=== PATIENT | female | born 1980 | race Caucasian/White ===

== ENCOUNTER 2019-02-07 19:34 | Emergency (ER) | payer OTHER, MEDICAID, SELFPAY ==
[2019-02-07 20:05] VITALS: BP 142/94; PULSE 80; RESP 18; TEMP 36.6; O2SAT 98
--- NOTE | 2019-02-07 20:40 | ED.SKABFB ---
HPI - Skin/Abscess/Foreign Bdy General Chief complaint: Skin/Abscess/Foreign Body Stated complaint: Rash Time Seen by Provider: 02/07/19 20:36 Source: patient Mode of arrival: Wheelchair Limitations: no limitations History of Present Illness HPI narrative: 38F non smoker with history of traumatic amputation of LLE (dog bite) presents with two children and itchy widespread rash the past few weeks to months. They have been living in various shelters and 1 of her children has been treated with permethrin for scabies. She has no fever chills nor any other complaints. She has had no runny nose, sore throat or cough. She complains largely of an itchy rash most notable on her hands and arms MD complaint: rash Tetanus up to date: no Location: generalized Severity: mild Quality: constant and pruritic Relieving factors: none Exacerbating factors: none Associated symptoms: itching Treatments prior to arrival: none Related Data Previous Rx's Medication Instructions Recorded permethrin 1 applictn TOP Q14D #60 gram 02/07/19 Review of Systems Constitutional Constitutional: Denies chills, Denies fatigue, Denies fever(s), Denies frequent falls, Denies lethargy and Denies weakness Eyes Eyes: Denies change in vision, Denies eye discharge, Denies irritation and Denies loss of vision ENT Ears, Nose, Mouth, and Throat: Denies change in voice, Denies dizziness, Denies neck pain, Denies sore throat and Denies throat swelling Cardiovascular Cardiovascular: Denies chest pain, Denies irregular heart rhythm, Denies lightheadedness, Denies palpitations, Denies dyspnea, Denies dyspnea on exertion and Denies orthopnea Respiratory Respiratory: Denies cough, Denies dyspnea, Denies dyspnea on exertion and Denies wheezing Gastrointestinal Gastrointestinal: Denies abdominal pain, Denies change in bowel habits, Denies diarrhea, Denies nausea and Denies vomiting Genitourinary Genitourinary: Denies hematuria, Denies flank pain, Denies urinary incontinence and Denies urinary urgency Musculoskeletal Musculoskeletal: Denies back pain, Denies muscle weakness, Denies neck pain, Denies numbness and Denies tingling Integumentary/Breasts Skin/Breast: Denies pruritus, Denies erythema, Reports rash and Denies wounds Neurologic Neurologic: Denies behavioral changes, Denies confusion, Denies dizziness, Denies frequent falls, Denies loss of vision, Denies numbness, Denies tingling and Denies weakness Psychiatric Psychiatric: Denies anxiety, Denies behavioral changes, Denies confusion, Denies depression, Denies homicidal ideation and Denies suicidal ideation Endocrine Endocrine: Denies fatigue, Denies flushing and Denies palpitations Hematologic/Lymphatic Hematologic/Lymphatic: Denies easy bruising Allergic/Immunologic Allergic/Immunologic: Denies urticaria, Denies throat swelling and Denies wheezing Patient History Social History Smoking Status: Never smoker Smoking Status: Never smoker Substance Use Type: does not use Exam Narrative Exam Narrative: GEN: AOx3 and in mild distress EYES: Pupils are equal, round, and reactive to light and accommodation. Extraoccular muscles are intact bilaterally. There is no subconjunctival hemorrhage or exudate. CHEST: Lungs are clear to auscultation bilaterally and free of wheezes, rales, or rhonchi. Heart rate is regular rhythm, there are no murmurs, clicks, rubs, or gallops. There is no chest wall tenderness. ABD: Abdomen is soft and nontender. There is no guarding or rebound. Bowel sounds are normal in all 4 quadrants. There is no mass or organomegaly. EXT: Full painless ROM of all extremities with no loss of sensation or strength. SKIN: Multiple minimally excoriated lesions particularly in the web spaces of her hands and on forearms consistent with scabies Initial Vital Signs Initial Vital Signs: Vital Signs Temperature 98 F 02/07/19 20:05 Pulse Rate 80 02/07/19 20:05 Respiratory Rate 18 02/07/19 20:05 Blood Pressure 142/94 H 02/07/19 20:05 Pulse Oximetry 98 02/07/19 20:05 Course Vital Signs Vital signs: Vital Signs - 8 hr 02/07/19 20:05 Temperature 98 F Pulse Rate 80 Respiratory Rate 18 Blood Pressure 142/94 H Pulse Oximetry 98 Discharge Plan Departure Patient Disposition: Home Clinical Impression: Scabies Discharge Date/Time: 02/07/19 21:12 Instructions: DI for Scabies Activity Restrictions/Additional Instructions: *You have been diagnosed with [acute pruritic rash, likely scabies] *What to do: *Take medications as directed *Follow up with your primary care provider in 2-3 days, call for an appointment. Let them know you were seen in the Emergency Department and that we ask that you be seen in follow up *Return to ER if you should have any new, worsening or concerning symptoms Prescriptions: New permethrin 5 % cream 1 applictn TOP Q14D Qty: 60 RF: 0
== END 2019-02-07 21:12 | disposition home or self-care (01) ==
PROVIDERS: Emergency Provider Emergency Medicine
DX: L29.9 Pruritus, unspecified (principal)
CPT/HCPCS: 99281

== ENCOUNTER 2019-06-30 18:58 | Emergency (ER) | payer OTHER, MEDICAID, SELFPAY ==
[2019-06-30 19:22] VITALS: PULSE 105; RESP 22; TEMP 36.9; O2SAT 95; BMI 48.4
== END 2019-06-30 20:40 | disposition left against medical advice (07) ==
PROVIDERS: Emergency Provider Emergency Medicine; PCP Family Medicine
DX: R06.02 Shortness of breath (principal); R05 Cough
CPT/HCPCS: 99281

== ENCOUNTER → 2019-07-01 14:34 | Outpatient (CLI) | payer OTHER, MEDICAID, SELFPAY ==
[2019-07-04 06:11] LABS: COVID19 Sendout Not Detected (Not Detected)
== END ==
PROVIDERS: PCP Family Medicine; Visit Provider Registered Nurse
DX: R06.02 Shortness of breath (principal)
CPT/HCPCS: 87635

== ENCOUNTER → 2019-07-22 14:39 | Outpatient (CLI) | payer OTHER, MEDICAID, SELFPAY ==
[2019-07-22 15:49] LABS: Add Manual Diff / Slide Review NO; Basophils Absolute Auto 100 /uL (0-100); Basophils Percent Auto 0.4 % (0-2); Eosinophils Absolute Auto 200 /uL (0-450); Eosinophils Percent Auto 1.3 % (2-4); Hematocrit 35.2 % (36-46); Hemoglobin 11.4 g/dL (12.0-16.0); Lymphocytes Absolute Auto 2900 /uL (1100-4500); Lymphocytes Percent Auto 23.3 % (25-40); Mean Corpuscular HGB Conc 32.4 % (30-36); Mean Corpuscular Hemoglobin 22.9 PG (26-34); Mean Corpuscular Volume 70.6 fL (80-100); Monocytes Absolute Auto 800 /uL (0-900); Monocytes Percent Auto 6.2 % (3-14); Neutrophils Absolute Auto 8400 /uL (1500-7000); Neutrophils Percent Auto 68.8 % (50-75); Platelet Count 550 X10^3/uL (150-400); Red Blood Cell Count 4.98 X10^6/uL (4.0-5.2); White Blood Cell Count 12.2 X10^3/uL (4.5-11.0)
[2019-07-22 16:42] LABS: Thyroid Stimulating Hormone 1.35 uIU/mL (0.47-4.68)
== END ==
PROVIDERS: PCP Family Medicine; Referring Provider Family Medicine; Visit Provider Family Medicine
DX: R53.83 Other fatigue (principal)
CPT/HCPCS: 36415; 84443; 85025

== ENCOUNTER → 2019-08-04 09:34 | Outpatient (CLI) | payer OTHER, MEDICAID, SELFPAY ==
[2019-08-04 11:11] LABS: Hematocrit 34.6 % (36-46); Hemoglobin 10.8 g/dL (12.0-16.0); Mean Corpuscular HGB Conc 31.2 % (30-36); Mean Corpuscular Hemoglobin 22.4 PG (26-34); Mean Corpuscular Volume 71.7 fL (80-100); Platelet Count 491 X10^3/uL (150-400); Red Blood Cell Count 4.83 X10^6/uL (4.0-5.2); Red Cell Distribution Width 17.8 % (11.6-14.8); White Blood Cell Count 12.6 X10^3/uL (4.5-11.0)
[2019-08-04 11:42] LABS: Neutrophils Absolute Manual 9702 /uL (3000-5900); RBC Morphology Normal Morphology; Total Cells Counted 100
== END ==
PROVIDERS: PCP Family Medicine; Referring Provider Family Medicine; Visit Provider Family Medicine
DX: K21.9 Gastro-esophageal reflux disease without esophagitis (principal)
CPT/HCPCS: 36415; 85025

== ENCOUNTER 2019-08-07 17:15 | Emergency (ER) | payer OTHER, MEDICAID, SELFPAY ==
[2019-08-07] VITALS (15 sets, daily range): BP systolic 150–193; BP diastolic 86–115; PULSE 101–119; RESP 20–32; TEMP 36.8–36.9; O2SAT 96–98; BMI 48.4
--- NOTE | 2019-08-07 17:25 | ED_ITS ---
HPI - SOB/Dyspnea <Clare Farrell PA-C - Last Filed: 08/07/19 22:35> General Chief Complaint: Shortness of Breath/Dyspnea Stated Complaint: dizzy,tired,out of breath easily Time Seen by Provider: 08/07/19 17:25 Source: patient Mode of arrival: Wheelchair Limitations: physical limitation History of Present Illness HPI Narrative: This is a 39-year-old woman current nonsmoker (quit 2 months ago) wheelchair dependent with a hx of total left leg amputation, GERD, CAD, recent low back pain, thrombocytosis, and leukocytosis who presents to the emergency department complaining of shortness of breath that began today as well just feeling very fatigued today, and some coughing last night; she has also low back pain for the past 2 weeks that is worse with movement and better with rest. She states that she also has noticed some swelling or like there is more fluid collected there? in her left thigh in the past week where her leg amputation is. She had an IUD placed last fall, she is not sure which kind. She says that she had it placed because she was having so much vaginal bleeding with her periods that it was like a hemorrhage. Since that time she has not had regular periods. She has only had some spotting. She notes that for 3 or 4 months now she has had a little bit of discharge that is whitish yellow and it is enough that she even wears a pad sometimes and she thinks that it smells a little bit bad, this has not worsened or changed recently. She notes that she had a mild headache for couple of days but she does not have 1 today. She denies any fever, chills, chest pain, pain with deep inspiration, abdominal pain, dysuria, chest pain, upper back or flank pain, or any other symptoms. Related Data Home Medications Medication Instructions Recorded Confirmed varenicline 1 mg tablet 1 mg PO BID 05/09/19 08/04/19 Previous Rx's Medication Instructions Recorded buspirone 10 mg tablet 10 mg PO BID #180 tab 05/09/19 lisinopril 20 mg tablet 20 mg PO BID #180 tab 05/09/19 omeprazole 20 mg capsule,delayed 20 mg PO DAILY #90 cap 05/09/19 release varenicline 0.5 mg (11)-1 mg (42) See Rx Instructions PO PER PKG DIR 05/09/19 tablets in a dose pack #53 each varenicline 1 mg tablet 1 mg PO BID #56 tab 05/09/19 venlafaxine 150 mg 150 mg PO BID #180 cap 05/09/19 capsule,extended release 24 hr crutches #1 ea 07/22/19 metoprolol tartrate 25 mg tablet 25 mg PO BEDTIME #30 tab 08/04/19 Allergies Allergy/AdvReac Type Severity Reaction Status Date / Time No Known Drug Allergies Allergy Verified 08/07/19 17:23 Review of Systems <Clare Farrell PA-C - Last Filed: 08/07/19 22:35> Review of Systems Narrative: GENERAL: Denies chills, fatigue, malaise, fever, sweats. HEENT: Denies sinus pain, ear pain, sore throat, difficulty swallowing, dizziness. RESPIRATORY: Positive for dyspnea, cough last night, negative for wheezing, hemoptysis, sputum. CARDIOVASCULAR: Denies chest pain, palpitations, orthopnea, positive for some edema in her left leg amputation she thinks this has changed in the last week. GASTROINTESTINAL: Denies nausea, vomiting, abdominal pain, diarrhea, constipation, melena. : Denies dysuria, frequency, incontinence, hematuria, urinary retention, positive for some whitish yellow discharge for the past 3 or 4 months that is ?not good smelling. MUSCULOSKELETAL: Positive for bilateral low back pain for the past few weeks, denies new weakness, joint pain, or bony pain SKIN: Denies rash, skin lesions, or other NEUROLOGIC: Denies weakness, positive for intermittent headache for the last few days--feels like her normal frequent headaches, negative for numbness, change in speech, confusion, seizures, incoordination. PSYCHIATRIC: No concerning psychosocial issues. 12 point review of systems is negative except for those stated above Patient History <Clare Farrell PA-C - Last Filed: 08/07/19 22:35> Medical History Below knee amputation (Acute) Chronic low back pain (Acute) Generalized anxiety disorder (Acute) GERD (gastroesophageal reflux disease) (Chronic) Leukocytosis (Acute) Loose left total knee arthroplasty (Acute) Sleep apnea (Acute) Thrombocytosis (Acute) Tobacco abuse disorder (Acute) Social History Smoking Status: Never smoker Smoking Status: Never smoker alcohol intake frequency: 0-2 drinks per day Substance Use Type: does not use Exam <Clare Farrell PA-C - Last Filed: 08/07/19 22:35> Narrative Exam Narrative: GENERAL: 39 year old morbidly obese left above the knee amputee patient appears stated age, sitting upright in bed, breathing quickly. Well-nourished, well-developed patient, in mild-moderate distress. HEAD: Atraumatic. Normocephalic. EYES: Pupils equal round and reactive. Extraocular motions intact. No scleral icterus. No injection or drainage. ENT: Nose without bleeding, purulent drainage. Throat without erythema, tonsillar hypertrophy or exudate. Airway patent. NECK: Trachea midline. Non tender CARDIOVASCULAR: Regular rate and rhythm without murmurs, gallops, or rubs. RESPIRATORY: Rapid respirations 26 Clear to auscultation. Breath sounds equal bilaterally. No wheezes, rales, or rhonchi. GASTROINTESTINAL: Abdomen soft, protruberant, non-tender, nondistended, No CVA tenderness. EXTREMITIES: the left AKA has no apreciable edema, and is without erythema or heat. No edema or joint tenderness noted on the right leg. BACK: Slight tenderness bilaterally at the sacroiliac joint. Otherwise Nontender without deformity or crepitance. No flank tenderness. NEURO: AOx3. SKIN: No rash or erythema of visible areas Initial Vital Signs Initial Vital Signs: Vital Signs Temperature 98.2 F 08/07/19 17:20 Pulse Rate 109 H 08/07/19 17:20 Respiratory Rate 27 H 08/07/19 17:20 Blood Pressure 187/102 H 08/07/19 17:20 Pulse Oximetry 97 08/07/19 17:20 <Robbin Evans DO - Last Filed: 08/07/19 22:46> Initial Vital Signs Initial Vital Signs: Vital Signs Temperature 98.2 F 08/07/19 17:20 Pulse Rate 109 H 08/07/19 17:20 Respiratory Rate 27 H 08/07/19 17:20 Blood Pressure 187/102 H 08/07/19 17:20 Pulse Oximetry 97 08/07/19 17:20 Course <Clare Farrell PA-C - Last Filed: 08/07/19 22:35> Orders Ordered: ED Orders 08/07/19 17:26 XR chest 2V Stat EKG-12 Lead Stat Measure peak expiratory flow ONCE RT Consult Eval and Treat Now 08/07/19 18:10 Complete Blood Count AUTO DIFF Stat Comprehensive Metabolic Panel Stat D Dimer Stat Lactate (Lactic Acid) Stat NT-proBNP (BNP-Adult 18+) Stat Partial Thromboplastin Time Stat Prothrombin Time INR Stat Troponin & CK Cardiac Panel Stat 08/07/19 19:40 Influenza A & B (PCR) Stat 08/07/19 19:52 Urine Microscopic Stat 08/07/19 20:53 CT angio chest PE protocol Stat Discontinued Medications Sodium Chloride (Normal Saline 0.9%) 1,000 mls @ 500 mls/hr IV BOLUS ONE Stop: 08/07/19 21:08 Last Infusion: 08/07/19 20:34 Dose: 0 mls/hr Documented by: Admin: 08/07/19 19:37 Dose: 500 mls/hr Documented by: [email or web address] Vital Signs Vital signs: Vital Signs - 8 hr 08/07/19 17:20 08/07/19 17:23 08/07/19 17:30 Temperature 98.2 F Pulse Rate 109 H 110 H 108 H Respiratory Rate 27 H 29 H 30 H Blood Pressure 187/102 H 193/107 H Pulse Oximetry 97 97 97 08/07/19 19:08 08/07/19 19:10 08/07/19 19:12 Temperature Pulse Rate 109 H 106 H 107 H Respiratory Rate 25 H 27 H 30 H Blood Pressure 167/100 H 166/95 H Pulse Oximetry 96 97 97 08/07/19 19:13 08/07/19 19:30 08/07/19 20:00 Temperature 98.5 F Pulse Rate 106 H 106 H Respiratory Rate 28 H 26 H Blood Pressure 166/95 H Pulse Oximetry 97 97 08/07/19 20:02 08/07/19 20:14 08/07/19 20:30 Temperature 98.3 F Pulse Rate 107 H 107 H 101 H Respiratory Rate 29 H 28 H 25 H Blood Pressure 150/86 H 150/89 H 169/115 H Pulse Oximetry 97 98 97 08/07/19 21:00 08/07/19 21:12 08/07/19 22:20 Temperature Pulse Rate 119 H 117 H 107 H Respiratory Rate 32 H 20 24 Blood Pressure 150/88 H Pulse Oximetry 97 97 98 <Robbin Evans DO - Last Filed: 08/07/19 22:46> Orders Ordered: ED Orders 08/07/19 17:26 XR chest 2V Stat EKG-12 Lead Stat Measure peak expiratory flow ONCE RT Consult Eval and Treat Now 08/07/19 18:10 Complete Blood Count AUTO DIFF Stat Comprehensive Metabolic Panel Stat D Dimer Stat Lactate (Lactic Acid) Stat NT-proBNP (BNP-Adult 18+) Stat Partial Thromboplastin Time Stat Prothrombin Time INR Stat Troponin & CK Cardiac Panel Stat 08/07/19 19:40 Influenza A & B (PCR) Stat 08/07/19 19:52 Urine Microscopic Stat 08/07/19 20:53 CT angio chest PE protocol Stat Discontinued Medications Sodium Chloride (Normal Saline 0.9%) 1,000 mls @ 500 mls/hr IV BOLUS ONE Stop: 08/07/19 21:08 Last Infusion: 08/07/19 20:34 Dose: 0 mls/hr Documented by: Admin: 08/07/19 19:37 Dose: 500 mls/hr Documented by: [email or web address] Vital Signs Vital signs: Vital Signs - 8 hr 08/07/19 17:20 08/07/19 17:23 08/07/19 17:30 Temperature 98.2 F Pulse Rate 109 H 110 H 108 H Respiratory Rate 27 H 29 H 30 H Blood Pressure 187/102 H 193/107 H Pulse Oximetry 97 97 97 08/07/19 19:08 08/07/19 19:10 08/07/19 19:12 Temperature Pulse Rate 109 H 106 H 107 H Respiratory Rate 25 H 27 H 30 H Blood Pressure 167/100 H 166/95 H Pulse Oximetry 96 97 97 08/07/19 19:13 08/07/19 19:30 08/07/19 20:00 Temperature 98.5 F Pulse Rate 106 H 106 H Respiratory Rate 28 H 26 H Blood Pressure 166/95 H Pulse Oximetry 97 97 08/07/19 20:02 08/07/19 20:14 08/07/19 20:30 Temperature 98.3 F Pulse Rate 107 H 107 H 101 H Respiratory Rate 29 H 28 H 25 H Blood Pressure 150/86 H 150/89 H 169/115 H Pulse Oximetry 97 98 97 08/07/19 21:00 08/07/19 21:12 08/07/19 22:20 Temperature Pulse Rate 119 H 117 H 107 H Respiratory Rate 32 H 20 24 Blood Pressure 150/88 H Pulse Oximetry 97 97 98 MDM - SOB/Dyspnea <Clare Farrell PA-C - Last Filed: 08/07/19 22:35> Lab Data Attestation: I reviewed the patient's lab results. Result diagrams: 08/07/19 18:10 08/07/19 18:10 Labs: Lab Results 08/07/19 08/07/19 08/07/19 Range/Units 18:10 18:10 18:10 WBC 17.9 H (4.5-11.0) X10^3/uL RBC 5.11 (4.0-5.2) X10^6/uL Hgb 11.8 L (12.0-16.0) g/dL Hct 36.6 (36-46) % MCV 71.5 L (80-100) fL MCH 23.1 L (26-34) PG MCHC 32.3 (30-36) % RDW 17.7 H (11.6-14.8) % Plt Count 525 H (150-400) X10^3/uL Neut % (Auto) 68.3 (50-75) % Lymph % (Auto) 22.4 L (25-40) % [place] % (Auto) 6.9 (3-14) % Eos % (Auto) 1.2 L (2-4) % Baso % (Auto) 1.2 (0-2) % Neut # (Auto) 03499 H (6017-5248) /uL Lymph # (Auto) 4000 (5353-9352) /uL [place] # (Auto) 1200 H (0-900) /uL Eos # (Auto) 200 (0-450) /uL Baso # (Auto) 200 H (0-100) /uL PT (10.1-12.7) SECONDS INR (0.9-1.3) APTT (26.4-36.2) SECONDS D-Dimer (<230) ng/mL Sodium 136 L (137-145) mmol/L Potassium 4.4 (3.4-5.1) mmol/L Chloride 101 (98-107) mmol/L Carbon Dioxide 25 (22-32) mmol/L BUN 10 (7-17) mg/dL Creatinine 0.38 L (0.52-1.04) mg/dL Estimated GFR > 60.0 (>60) mL/min BUN/Creatinine Ratio 26.3 H (6-22) Glucose 208 H (70-100) mg/dL Lactate 2.0 (0.7-2.1) mmol/L Calcium 9.5 (8.4-10.2) mg/dL Total Bilirubin 0.3 (0.2-1.3) mg/dL AST 23 (14-36) IU/L ALT 17 (<35) IU/L Alkaline Phosphatase 126 (38-126) U/L Total Creatine Kinase (30-135) U/L CK-MB (CK-2) CK-MB (CK-2) Rel Index Troponin I (0.01-0.034) ng/mL NT-Pro-B Natriuret Pep (<125) pg/mL Total Protein 7.5 (6.3-8.2) g/dL Albumin 4.2 (3.5-5.0) g/dL Globulin 3.3 (1.7-4.1) g/dL Albumin/Globulin Ratio 1.3 (1.0-2.8) Urine RBC (0-5/HPF) Urine WBC (0-5/HPF) Ur Squamous Epith Cells (0-5/HPF) Amorphous Sediment Urine Bacteria (None) Urine Mucus (Negative) Ur Culture Indicated? Influenza A (RT-PCR) (NEGATIVE) Influenza B (RT-PCR) (NEGATIVE) 08/07/19 08/07/19 08/07/19 Range/Units 18:10 18:10 18:10 WBC (4.5-11.0) X10^3/uL RBC (4.0-5.2) X10^6/uL Hgb (12.0-16.0) g/dL Hct (36-46) % MCV (80-100) fL MCH (26-34) PG MCHC (30-36) % RDW (11.6-14.8) % Plt Count (150-400) X10^3/uL Neut % (Auto) (50-75) % Lymph % (Auto) (25-40) % [place] % (Auto) (3-14) % Eos % (Auto) (2-4) % Baso % (Auto) (0-2) % Neut # (Auto) (7948-2420) /uL Lymph # (Auto) (0262-4340) /uL [place] # (Auto) (0-900) /uL Eos # (Auto) (0-450) /uL Baso # (Auto) (0-100) /uL PT 11.1 (10.1-12.7) SECONDS INR 1.0 (0.9-1.3) APTT 30 (26.4-36.2) SECONDS D-Dimer < 200 (<230) ng/mL Sodium (137-145) mmol/L Potassium (3.4-5.1) mmol/L Chloride (98-107) mmol/L Carbon Dioxide (22-32) mmol/L BUN (7-17) mg/dL Creatinine (0.52-1.04) mg/dL Estimated GFR (>60) mL/min BUN/Creatinine Ratio (6-22) Glucose (70-100) mg/dL Lactate (0.7-2.1) mmol/L Calcium (8.4-10.2) mg/dL Total Bilirubin (0.2-1.3) mg/dL AST (14-36) IU/L ALT (<35) IU/L Alkaline Phosphatase (38-126) U/L Total Creatine Kinase (30-135) U/L CK-MB (CK-2) CK-MB (CK-2) Rel Index Troponin I (0.01-0.034) ng/mL NT-Pro-B Natriuret Pep 24 (<125) pg/mL Total Protein (6.3-8.2) g/dL Albumin (3.5-5.0) g/dL Globulin (1.7-4.1) g/dL Albumin/Globulin Ratio (1.0-2.8) Urine RBC (0-5/HPF) Urine WBC (0-5/HPF) Ur Squamous Epith Cells (0-5/HPF) Amorphous Sediment Urine Bacteria (None) Urine Mucus (Negative) Ur Culture Indicated? Influenza A (RT-PCR) (NEGATIVE) Influenza B (RT-PCR) (NEGATIVE) 08/07/19 08/07/19 08/07/19 Range/Units 18:10 19:40 19:52 WBC (4.5-11.0) X10^3/uL RBC (4.0-5.2) X10^6/uL Hgb (12.0-16.0) g/dL Hct (36-46) % MCV (80-100) fL MCH (26-34) PG MCHC (30-36) % RDW (11.6-14.8) % Plt Count (150-400) X10^3/uL Neut % (Auto) (50-75) % Lymph % (Auto) (25-40) % [place] % (Auto) (3-14) % Eos % (Auto) (2-4) % Baso % (Auto) (0-2) % Neut # (Auto) (9550-8027) /uL Lymph # (Auto) (1726-4680) /uL [place] # (Auto) (0-900) /uL Eos # (Auto) (0-450) /uL Baso # (Auto) (0-100) /uL PT (10.1-12.7) SECONDS INR (0.9-1.3) APTT (26.4-36.2) SECONDS D-Dimer (<230) ng/mL Sodium (137-145) mmol/L Potassium (3.4-5.1) mmol/L Chloride (98-107) mmol/L Carbon Dioxide (22-32) mmol/L BUN (7-17) mg/dL Creatinine (0.52-1.04) mg/dL Estimated GFR (>60) mL/min BUN/Creatinine Ratio (6-22) Glucose (70-100) mg/dL Lactate (0.7-2.1) mmol/L Calcium (8.4-10.2) mg/dL Total Bilirubin (0.2-1.3) mg/dL AST (14-36) IU/L ALT (<35) IU/L Alkaline Phosphatase (38-126) U/L Total Creatine Kinase 42 (30-135) U/L CK-MB (CK-2) TNP CK-MB (CK-2) Rel Index TNP Troponin I < 0.012 (0.01-0.034) ng/mL NT-Pro-B Natriuret Pep (<125) pg/mL Total Protein (6.3-8.2) g/dL Albumin (3.5-5.0) g/dL Globulin (1.7-4.1) g/dL Albumin/Globulin Ratio (1.0-2.8) Urine RBC 0-1/hpf (0-5/HPF) Urine WBC 1-5/hpf (0-5/HPF) Ur Squamous Epith Cells 5-10 /hpf H (0-5/HPF) Amorphous Sediment 1+ Urine Bacteria Few (2-10) H (None) Urine Mucus 1+ H (Negative) Ur Culture Indicated? Cult not indicated Influenza A (RT-PCR) Flu a negative (NEGATIVE) Influenza B (RT-PCR) Flu b negative (NEGATIVE) Imaging Data Chest x-ray: Attestation: I personally reviewed and interpreted this imaging study as follows: Radiologist's Impression: [address] [address] XRay Report Signed Patient: Zaria Maldonado BMR#: [id number] : 1980Acct:[id number] Age/Sex: 39 / FDate of Service: 08/07/19 Loc: ED Accession Number: [id number] Procedure: XR chest 2V Ordering Provider: Clare Farrell P.A-C PROCEDURE: XR CHEST 2V INDICATIONS: shortness of breath TECHNIQUE: 2 views of the chest were acquired. COMPARISON: None. FINDINGS: Surgical changes and devices: None. Lungs and pleura: Lungs are clear. No pleural effusions or pneumothorax. Mediastinum: Mediastinal contours are normal. Heart size is normal. Bones and chest wall: No suspicious bony abnormalities. Soft tissues appear unremarkable. IMPRESSION: Low lung volumes with scattered subsegmental atelectasis/scarring. Dictated by: Ari Ace M.D. on 08/07/2019 at 18:18 Approved by: Ari Ace M.D. on 08/07/2019 at 18:21 CT scan - chest: Attestation: I personally reviewed and interpreted this imaging study as follows: Radiologist's Impression: [address] [address] [address] Scan Report Signed Patient: Zaria Maldonado BMR#: [id number] : 1980Acct:[id number] Age/Sex: 39 / FDate of Service: 08/07/19 Loc: ED Accession Number: [id number] Procedure: CT angio chest PE protocol Ordering Provider: Clare Farrell P.A-C PROCEDURE: CT ANGIO CHEST PE PROTOCOL INDICATIONS: acute dyspnea/tachycardia TECHNIQUE: After the administration of intravenous contrast, 2 mm thick sections acquired from the pulmonary apices to the posterior costophrenic angles. 3-dimensional maximum i ntensity projection (MIP) coronal and sagittal reformats were then acquired through the thorax. For radiation dose reduction, the following was used: automated exposure control, adjustment of mA and/or kV according to patient size. COMPARISON: None. FINDINGS: Image quality: Suboptimal due to body habitus. Pulmonary arteries: Pulmonary arteries are normal in size, and demonstrate no intraluminal filling defects to suggest central pulmonary embolism. Lungs and pleura: Lungs are clear. Mild scattered atelectasis. No pleural effusions or pneumothorax. Central and peripheral airways are patent. Mediastinum: Heart size is normal, without pericardial effusion. No mediastinal or hilar adenopathy. Thoracic aorta is normal in caliber and enhancement. Esophagus is normal in caliber, and there is a moderate hiatal hernia. Bones and chest wall: No suspicious bony lesions. Ribs and thoracic spine appear intact throughout. Thyroid gland negative. No axillary or supraclavicular adenopathy. Abdomen: Visualized upper abdominal solid organs appear normal in the early arterial phase of enhancement. IMPRESSION: Suboptimal evaluation due to body habitus however no gross pulmonary embolism identified No acute consolidation Moderate hiatal hernia Dictated by: Ari Ace M.D. on 08/07/2019 at 21:30 Approved by: Ari Ace M.D. on 08/07/2019 at 21:32 ECG Data Attestation: I personally reviewed and interpreted this ECG as follows: (sinus tachycardia,rate 107, CT 142, QRS 88, QT 332 P axis 19 R axis 11 T axis 31) MDM Narrative Medical decision making narrative: This is a 39-year-old nonsmoker morbidly obese woman with a left above the knee amputation and a history of low back pain, leukocytosis, thrombocytosis, CRIS and (suspected) sleep apnea who presents to the emergency department complaining of shortness of breath that began gradually this morning, she also had some coughing last night, and has felt very fatigued today. Differential diagnoses considered include sequela of sleep apnea, COVID-19, p ericarditis, pericardial effusion, pleural effusion, pulmonary embolism, pneumonia, sepsis, influenza, anemia, VT, aortic dissection After an extensive laboratory workup the patient continued to have unexplained abnormal vitals including elevated heart rate and respirations. Blood pressures were equal bilaterally. Cardiac labs within normal limits, negative D-dimer, negative urine, EKG w/mild tachycardia otherwise unremarkable, labs unremarkable with exception of elevated white count to 17,000 and elevated platelets to 525, she has a known history of leukocytosis and thrombocytosis; no clear etiology for her new-onset shortness of breath. CT scan PE protocol is obtained both to reaffirm negative PE, and to further assess the chest for causes of shortness of breath. This was also unremarkable and the patient felt significantly better towards the end of her stay and after receiving a 500 cc bolus of normal saline, she was discharged home with emergency return precautions, very close PCP follow-up, and all questions were answered. Patient was discussed with ED attending and labs and imaging /orders including plan for discharge were discussed and reviewed together. <Robbin Evans, DO - Last Filed: 08/07/19 22:46> Lab Data Labs: Lab Results 08/07/19 08/07/19 08/07/19 Range/Units 18:10 18:10 18:10 WBC 17.9 H (4.5-11.0) X10^3/uL RBC 5.11 (4.0-5.2) X10^6/uL Hgb 11.8 L (12.0-16.0) g/dL Hct 36.6 (36-46) % MCV 71.5 L (80-100) fL MCH 23.1 L (26-34) PG MCHC 32.3 (30-36) % RDW 17.7 H (11.6-14.8) % Plt Count 525 H (150-400) X10^3/uL Neut % (Auto) 68.3 (50-75) % Lymph % (Auto) 22.4 L (25-40) % [place] % (Auto) 6.9 (3-14) % Eos % (Auto) 1.2 L (2-4) % Baso % (Auto) 1.2 (0-2) % Neut # (Auto) 93205 H (9047-8418) /uL Lymph # (Auto) 4000 (9070-2728) /uL [place] # (Auto) 1200 H (0-900) /uL Eos # (Auto) 200 (0-450) /uL Baso # (Auto) 200 H (0-100) /uL PT (10.1-12.7) SECONDS INR (0.9-1.3) APTT (26.4-36.2) SECONDS D-Dimer (<230) ng/mL Sodium 136 L (137-145) mmol/L Potassium 4.4 (3.4-5.1) mmol/L Chloride 101 (98-107) mmol/L Carbon Dioxide 25 (22-32) mmol/L BUN 10 (7-17) mg/dL Creatinine 0.38 L (0.52-1.04) mg/dL Estimated GFR > 60.0 (>60) mL/min BUN/Creatinine Ratio 26.3 H (6-22) Glucose 208 H (70-100) mg/dL Lactate 2.0 (0.7-2.1) mmol/L Calcium 9.5 (8.4-10.2) mg/dL Total Bilirubin 0.3 (0.2-1.3) mg/dL AST 23 (14-36) IU/L ALT 17 (<35) IU/L Alkaline Phosphatase 126 (38-126) U/L Total Creatine Kinase (30-135) U/L CK-MB (CK-2) CK-MB (CK-2) Rel Index Troponin I (0.01-0.034) ng/mL NT-Pro-B Natriuret Pep (<125) pg/mL Total Protein 7.5 (6.3-8.2) g/dL Albumin 4.2 (3.5-5.0) g/dL Globulin 3.3 (1.7-4.1) g/dL Albumin/Globulin Ratio 1.3 (1.0-2.8) Urine RBC (0-5/HPF) Urine WBC (0-5/HPF) Ur Squamous Epith Cells (0-5/HPF) Amorphous Sediment Urine Bacteria (None) Urine Mucus (Negative) Ur Culture Indicated? Influenza A (RT-PCR) (NEGATIVE) Influenza B (RT-PCR) (NEGATIVE) 07/02/20 07/02/20 07/02/20 Range/Units 18:10 18:10 18:10 WBC (4.5-11.0) X10^3/uL RBC (4.0-5.2) X10^6/uL Hgb (12.0-16.0) g/dL Hct (36-46) % MCV (80-100) fL MCH (26-34) PG MCHC (30-36) % RDW (11.6-14.8) % Plt Count (150-400) X10^3/uL Neut % (Auto) (50-75) % Lymph % (Auto) (25-40) % [place] % (Auto) (3-14) % Eos % (Auto) (2-4) % Baso % (Auto) (0-2) % Neut # (Auto) (6937-9099) /uL Lymph # (Auto) ([address]-5120) /uL [place] # (Auto) (0-900) /uL Eos # (Auto) (0-450) /uL Baso # (Auto) (0-100) /uL PT 11.1 (10.1-12.7) SECONDS INR 1.0 (0.9-1.3) APTT 30 (26.4-36.2) SECONDS D-Dimer < 200 (<230) ng/mL Sodium (137-145) mmol/L Potassium (3.4-5.1) mmol/L Chloride (98-107) mmol/L Carbon Dioxide (22-32) mmol/L BUN (7-17) mg/dL Creatinine (0.52-1.04) mg/dL Estimated GFR (>60) mL/min BUN/Creatinine Ratio (6-22) Glucose (70-100) mg/dL Lactate (0.7-2.1) mmol/L Calcium (8.4-10.2) mg/dL Total Bilirubin (0.2-1.3) mg/dL AST (14-36) IU/L ALT (<35) IU/L Alkaline Phosphatase (38-126) U/L Total Creatine Kinase (30-135) U/L CK-MB (CK-2) CK-MB (CK-2) Rel Index Troponin I (0.01-0.034) ng/mL NT-Pro-B Natriuret Pep 24 (<125) pg/mL Total Protein (6.3-8.2) g/dL Albumin (3.5-5.0) g/dL Globulin (1.7-4.1) g/dL Albumin/Globulin Ratio (1.0-2.8) Urine RBC (0-5/HPF) Urine WBC (0-5/HPF) Ur Squamous Epith Cells (0-5/HPF) Amorphous Sediment Urine Bacteria (None) Urine Mucus (Negative) Ur Culture Indicated? Influenza A (RT-PCR) (NEGATIVE) Influenza B (RT-PCR) (NEGATIVE) 08/07/19 08/07/19 08/07/19 Range/Units 18:10 19:40 19:52 WBC (4.5-11.0) X10^3/uL RBC (4.0-5.2) X10^6/uL Hgb (12.0-16.0) g/dL Hct (36-46) % MCV (80-100) fL MCH (26-34) PG MCHC (30-36) % RDW (11.6-14.8) % Plt Count (150-400) X10^3/uL Neut % (Auto) (50-75) % Lymph % (Auto) (25-40) % [place] % (Auto) (3-14) % Eos % (Auto) (2-4) % Baso % (Auto) (0-2) % Neut # (Auto) (0889-2889) /uL Lymph # (Auto) (3243-3847) /uL [place] # (Auto) (0-900) /uL Eos # (Auto) (0-450) /uL Baso # (Auto) (0-100) /uL PT (10.1-12.7) SECONDS INR (0.9-1.3) APTT (26.4-36.2) SECONDS D-Dimer (<230) ng/mL Sodium (137-145) mmol/L Potassium (3.4-5.1) mmol/L Chloride (98-107) mmol/L Carbon Dioxide (22-32) mmol/L BUN (7-17) mg/dL Creatinine (0.52-1.04) mg/dL Estimated GFR (>60) mL/min BUN/Creatinine Ratio (6-22) Glucose (70-100) mg/dL Lactate (0.7-2.1) mmol/L Calcium (8.4-10.2) mg/dL Total Bilirubin (0.2-1.3) mg/dL AST (14-36) IU/L ALT (<35) IU/L Alkaline Phosphatase (38-126) U/L Total Creatine Kinase 42 (30-135) U/L CK-MB (CK-2) TNP CK-MB (CK-2) Rel Index TNP Troponin I < 0.012 (0.01-0.034) ng/mL NT-Pro-B Natriuret Pep (<125) pg/mL Total Protein (6.3-8.2) g/dL Albumin (3.5-5.0) g/dL Globulin (1.7-4.1) g/dL Albumin/Globulin Ratio (1.0-2.8) Urine RBC 0-1/hpf (0-5/HPF) Urine WBC 1-5/hpf (0-5/HPF) Ur Squamous Epith Cells 5-10 /hpf H (0-5/HPF) Amorphous Sediment 1+ Urine Bacteria Few (2-10) H (None) Urine Mucus 1+ H (Negative) Ur Culture Indicated? Cult not indicated Influenza A (RT-PCR) Flu a negative (NEGATIVE) Influenza B (RT-PCR) Flu b negative (NEGATIVE) Discharge Plan Departure Patient Disposition: Home Clinical Impression: Shortness of breath, Cough Low back pain Qualifiers: Chronicity: chronic Back pain laterality: bilateral Sciatica presence: unspecified whether sciatica present Qualified Code(s): M54.5 - Low back pain Discharge Date/Time: 08/07/19 22:20 Instructions: DI for Shortness of Breath Activity Restrictions/Additional Instructions: Thank you for letting us be part of your care today in the emergency department. After an extensive workup, there is no evidence of an emergent or life threatening illness at this time, but follow up with your doctor in 1-2 days is recommended nonetheless to continue to rule out serious underlying causes of your symptoms. Please call the office for an appointment. Please return to the Emergency Department for any worsening or persistent symptoms. Please take medications as directed. It is important that you follow-up with your primary care physician regarding your breathing difficulty, and your plan for a sleep study for sleep apnea. It is also important that if you have any worsening symptoms or new symptoms that you seek medical care immediately. I do not have a clear answer for why you have been having increased shortness of breath today, however I am glad that you were feeling better upon your departure from the emergency department and I feel comfortable that we have ruled out any major life threats with the labs and imaging studies we have performed today but please pay close attention to her symptoms and do follow-up as soon as possible tomorrow or early next week with your primary care physician. Prescriptions: No Action varenicline 1 mg tablet 1 mg PO BID RF: 0 buspirone 10 mg tablet 10 mg PO BID Qty: 180 RF: 1 omeprazole 20 mg capsule,delayed release(DR/EC) 20 mg PO DAILY Qty: 90 RF: 1 venlafaxine 150 mg capsule,extended release 24hr 150 mg PO BID Qty: 180 RF: 1 Chantix Starting Month Box 0.5 mg (11)- 1 mg (42) tablets,dose pack See Rx Instructions PO PER PKG DIR Qty: 53 RF: 0 Chantix Continuing Month Box 1 mg tablet 1 mg PO BID Qty: 56 RF: 1 lisinopril 20 mg tablet 20 mg PO BID Qty: 180 RF: 3 (DME) crutches Qty: 1 RF: 0 metoprolol tartrate 25 mg tablet 25 mg PO BEDTIME Qty: 30 RF: 1 Referrals: Raffaele Diallo DO [Primary Care Provider] - <Robbin Evans DO - Last Filed: 08/07/19 22:46> [facility]: Dr Evans Co-Sign Statement: I was available for consultation during this patient's emergency department visit. This chart is signed by myself for administrative purposes only. I did not have direct contact with this patient during this visit. They were seen indep endently by the APC.
[2019-08-07 18:22] LABS: Add Manual Diff / Slide Review NO; Basophils Absolute Auto 200 /uL (0-100); Basophils Percent Auto 1.2 % (0-2); Eosinophils Absolute Auto 200 /uL (0-450); Eosinophils Percent Auto 1.2 % (2-4); Hematocrit 36.6 % (36-46); Hemoglobin 11.8 g/dL (12.0-16.0); Lymphocytes Absolute Auto 4000 /uL (1100-4500); Lymphocytes Percent Auto 22.4 % (25-40); Mean Corpuscular HGB Conc 32.3 % (30-36); Mean Corpuscular Hemoglobin 23.1 PG (26-34); Mean Corpuscular Volume 71.5 fL (80-100); Monocytes Absolute Auto 1200 /uL (0-900); Monocytes Percent Auto 6.9 % (3-14); Neutrophils Absolute Auto 12200 /uL (1500-7000); Neutrophils Percent Auto 68.3 % (50-75); Platelet Count 525 X10^3/uL (150-400); Red Blood Cell Count 5.11 X10^6/uL (4.0-5.2); Red Cell Distribution Width 17.7 % (11.6-14.8); White Blood Cell Count 17.9 X10^3/uL (4.5-11.0)
[2019-08-07 18:30] LABS: Prothrombin Time 11.1 SECONDS (10.1-12.7)
[2019-08-07 18:33] LABS: PTT Partial Thromboplastin Tim 30 SECONDS (26.4-36.2)
[2019-08-07 18:36] LABS: Alanine Aminotransferase 17 IU/L (<35); Albumin 4.2 g/dL (3.5-5.0); Albumin Globulin Ratio 1.3 (1.0-2.8); Alkaline Phosphatase 126 U/L (38-126); Aspartate Aminotransferase 23 IU/L (14-36); BUN Creatinine Ratio 26.3 (6-22); Bilirubin Total 0.3 mg/dL (0.2-1.3); Blood Urea Nitrogen 10 mg/dL (7-17); Calcium 9.5 mg/dL (8.4-10.2); Carbon Dioxide 25 mmol/L (22-32); Chloride 101 mmol/L (98-107); Creatine Kinase 42 U/L (30-135); D Dimer < 200 ng/mL (<230); Estimated Glomerular Filt Rate > 60.0 mL/min (>60); Globulin 3.3 g/dL (1.7-4.1); Glucose 208 mg/dL (70-100); HEMOLYSIS 18 (0-50); Potassium 4.4 mmol/L (3.4-5.1); Sodium 136 mmol/L (137-145); Total Protein 7.5 g/dL (6.3-8.2)
[2019-08-07 18:44] LABS: NT-proBNP (BNP-Adult 18+) 24 pg/mL (<125)
[2019-08-07 18:47] LABS: Troponin I < 0.012 ng/mL (0.01-0.034)
[2019-08-07] MEDS: SODIUM CHLORIDE 0.9% 1,000 ML 500 ML IV (19:37)
[2019-08-07 20:10] LABS: Amorphous Sediment Urine 1+; Bacteria Urine Few (2-10); Mucus Urine 1+ (Negative); RBC Urine 0-1/HPF (0-5/HPF); Squamous Epithelial Cell Urine 5-10 /HPF (0-5/HPF); WBC Urine 1-5/HPF (0-5/HPF)
[2019-08-07 20:11] LABS: Culture Indicated Urine Cult Not Indicated
--- NOTE | 2019-08-07 20:15 | PC.NURSE ---
Pt went to bathroom via wheelchair. Pt complained of being really hot and sweaty. After pt came out of bathroom pt seemed very short of breath. This [employer] accompanied the pt back to her room and got another set of vitals as well as gave her a cool washrag
[2019-08-07 20:38] LABS: Influenza A - CEPHEID Flu A NEGATIVE (NEGATIVE); Influenza B - CEPHEID Flu B NEGATIVE (NEGATIVE)
--- NOTE | 2019-08-07 20:53 | DI.CT.S_ITS ---
PROCEDURE: CT ANGIO CHEST PE PROTOCOL INDICATIONS: acute dyspnea/tachycardia TECHNIQUE: After the administration of intravenous contrast, 2 mm thick sections acquired from the pulmonary apices to the posterior costophrenic angles. 3-dimensional maximum intensity projection (MIP) coronal and sagittal reformats were then acquired through the thorax. For radiation dose reduction, the following was used: automated exposure control, adjustment of mA and/or kV according to patient size. COMPARISON: None. FINDINGS: Image quality: Suboptimal due to body habitus. Pulmonary arteries: Pulmonary arteries are normal in size, and demonstrate no intraluminal filling defects to suggest central pulmonary embolism. Lungs and pleura: Lungs are clear. Mild scattered atelectasis. No pleural effusions or pneumothorax. Central and peripheral airways are patent. Mediastinum: Heart size is normal, without pericardial effusion. No mediastinal or hilar adenopathy. Thoracic aorta is normal in caliber and enhancement. Esophagus is normal in caliber, and there is a moderate hiatal hernia. Bones and chest wall: No suspicious bony lesions. Ribs and thoracic spine appear intact throughout. Thyroid gland negative. No axillary or supraclavicular adenopathy. Abdomen: Visualized upper abdominal solid organs appear normal in the early arterial phase of enhancement. IMPRESSION: Suboptimal evaluation due to body habitus however no gross pulmonary embolism identified No acute consolidation Moderate hiatal hernia Dictated by: Ari Ace M.D. on 08/07/2019 at 21:30 Approved by: Ari Ace M.D. on 08/07/2019 at 21:32
--- NOTE | 2019-08-07 21:02 | PC.NURSE ---
PT states SOB today with increasing fatigue, non productive cough last night and low back pain for past two weeks. 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 Pt denies CP. Denies fevers or loose stool. Related Data
[2019-08-10 04:07] LABS: COVID19 Sendout Not Detected (Not Detected)
== END 2019-08-07 22:20 | disposition home or self-care (01) ==
PROVIDERS: Emergency Provider Student in an Organized Health Care Education/Training Program; PCP Family Medicine
DX: R06.02 Shortness of breath (principal); R05 Cough; M54.5 Low back pain; R00.0 Tachycardia, unspecified; E66.01 Morbid (severe) obesity due to excess calories; Z97.5 Presence of (intrauterine) contraceptive device
CPT/HCPCS: 36415; 71046; 71275; 80053; 81015; 82550; 83605; 83880; 84484; 85025; 85379; 85610; 85730; 87502; 87635; 93005; 96360; 99284; Q9967

== ENCOUNTER 2019-08-17 16:11 | Emergency (ER) | payer OTHER, MEDICAID, SELFPAY ==
[2019-08-17] VITALS (7 sets, daily range): BP systolic 174–181; BP diastolic 96–99; PULSE 97–104; RESP 22–29; TEMP 37; O2SAT 93–96; BMI 48.4
--- NOTE | 2019-08-17 16:15 | PC.NURSE ---
Triage note: Pt C/O known COVID exposure. No room available at this time. Had pt wait outside for room to be cleared. Room 8 cleared and pt brought in. Explained negative pressure rooms and contamination.
--- NOTE | 2019-08-17 16:56 | DI.RAD.S_ITS ---
PROCEDURE: XR CHEST 1V INDICATIONS: short of breath TECHNIQUE: One view of the chest was acquired. COMPARISON: [facility], CR, XR CHEST 2V, 08/07/2019, 17:35. FINDINGS: Surgical changes and devices: None. Lungs and pleura: Lungs are clear. No pleural effusions or pneumothorax. Mild appearance of increased pulmonary vascularity. Mediastinum: Mediastinal contours appear normal. Heart size is enlarged. Bones and chest wall: No suspicious bony lesions. Overlying soft tissues appear unremarkable. IMPRESSION: Mild increased vascularity suggestive of edema. Dictated by: Camilla Morris M.D. on 08/17/2019 at 17:50 Approved by: Camilla Morris M.D. on 08/17/2019 at 17:51
[2019-08-17] MEDS: ALBUTEROL HFA 60 PUFF/8 GM INH INH (17:10)
[2019-08-17 17:15] LABS: Add Manual Diff / Slide Review NO; Basophils Absolute Auto 100 /uL (0-100); Eosinophils Absolute Auto 100 /uL (0-450); Eosinophils Percent Auto 1.5 % (2-4); Hemoglobin 10.9 g/dL (12.0-16.0); Lymphocytes Absolute Auto 1400 /uL (1100-4500); Mean Corpuscular HGB Conc 31.2 % (30-36); Mean Corpuscular Hemoglobin 22.4 PG (26-34); Mean Corpuscular Volume 71.8 fL (80-100); Monocytes Absolute Auto 1000 /uL (0-900); Monocytes Percent Auto 14.2 % (3-14); Neutrophils Absolute Auto 4300 /uL (1500-7000); Neutrophils Percent Auto 63.3 % (50-75); Platelet Count 431 X10^3/uL (150-400); Red Blood Cell Count 4.88 X10^6/uL (4.0-5.2); Red Cell Distribution Width 17.7 % (11.6-14.8); White Blood Cell Count 6.8 X10^3/uL (4.5-11.0)
[2019-08-17] MEDS: SODIUM CHLORIDE 0.9% 1,000 ML 125 ML IV (17:19)
--- NOTE | 2019-08-17 17:20 | ED_ITS ---
HPI - SOB/Dyspnea <DO Mayra Esparza Last Filed: 08/18/19 07:48> General Chief Complaint: Shortness of Breath/Dyspnea Stated Complaint: Difficulty Breathing/ Poss COVID Time Seen by Provider: 08/17/19 16:31 Source: patient Mode of arrival: Wheelchair Limitations: no limitations History of Present Illness HPI Narrative: 39-year-old Obese woman with history of coronary artery disease thrombocytosis and leukocytosis presenting after exposure to COVID-19 with shortness of breath. She says she and her girlfriend traveled by car to [place] her friend started having symptoms she tested positive in [place]. They drove back and she started having some body aches fevers chills cough and shortness of breath for the last 3-4 days. Today she says it is progressively worse. She has severe headache denies nausea or vomiting no abdominal pain. MD Complaint: shortness of breath and cough Onset (ago): day(s) Context: recent illness and recent travel Severity: moderate Consistency/Duration: constant Relieving factors: nothing Exacerbating factors: nothing Related Data Home Medications Medication Instructions Recorded Confirmed varenicline 1 mg tablet 1 mg PO BID 05/09/19 08/04/19 Previous Rx's Medication Instructions Recorded buspirone 10 mg tablet 10 mg PO BID #180 tab 05/09/19 lisinopril 20 mg tablet 20 mg PO BID #180 tab 05/09/19 omeprazole 20 mg capsule,delayed 20 mg PO DAILY #90 cap 05/09/19 release varenicline 0.5 mg (11)-1 mg (42) See Rx Instructions PO PER PKG DIR 05/09/19 tablets in a dose pack #53 each varenicline 1 mg tablet 1 mg PO BID #56 tab 05/09/19 venlafaxine 150 mg 150 mg PO BID #180 cap 05/09/19 capsule,extended release 24 hr crutches #1 ea 07/22/19 metoprolol tartrate 25 mg tablet 25 mg PO BEDTIME #30 tab 08/04/19 Allergies Allergy/AdvReac Type Severity Reaction Status Date / Time No Known Drug Allergies Allergy Verified 08/07/19 17:23 Review of Systems <DO Mayra Esparza Last Filed: 08/18/19 07:48> Review of Systems Narrative: GENERAL: Denies chills, fatigue, malaise, fever, sweats, travel HEENT: Denies sinus pain, ear pain, sore throat, difficulty swallowing, neck pain RESPIRATORY: See HPI CARDIOVASCULAR: Denies chest pain, palpitations, orthopnea, edema GASTROINTESTINAL: Denies nausea, vomiting, abdominal pain, diarrhea, constipation, melena. : Denies dysuria, frequency, incontinence, hematuria, urinary retention, flank pain. MUSCULOSKELETAL: Denies weakness, joint pain, or bony pain SKIN: No rash, no erythema, no pruritus NEUROLOGIC: Denies weakness, dizziness, headache, numbness, change in speech, confusion PSYCHIATRIC: No concerning psychosocial issues. 12 point review of systems is negative except for those stated above and HPI Patient History <Malka Pearce DO - Last Filed: 08/18/19 07:48> Medical History Below knee amputation (Acute) Chronic low back pain (Acute) Generalized anxiety disorder (Acute) GERD (gastroesophageal reflux disease) (Chronic) Leukocytosis (Acute) Loose left total knee arthroplasty (Acute) Sleep apnea (Acute) Thrombocytosis (Acute) Tobacco abuse disorder (Acute) Social History Smoking Status: Never smoker Smoking Status: Never smoker alcohol intake frequency: 0-2 drinks per day Substance Use Type: does not use Exam <Malka Pearce DO - Last Filed: 08/18/19 07:48> Initial Vital Signs Initial Vital Signs: Vital Signs Temperature 98.6 F 08/17/19 16:39 Pulse Rate 98 H 08/17/19 16:39 Respiratory Rate 27 H 08/17/19 16:39 Blood Pressure 181/99 H 08/17/19 16:39 Pulse Oximetry 96 08/17/19 16:39 GENERAL: Alert obese female in mild distress HEENT: Head atraumatic,EOMI, pupils reactive, face symmetric, [moist] mucous membranes CARDIOVASCULAR: Regular rate and rhythm without murmurs, rubs or gallops. RESPIRATORY: Breath sounds equal bilaterally, no wheezes rales or rhonchi. Speaks in full sentences ABDOMEN: Soft, nontender. Normoactive bowel sounds all 4 quadrants. No guarding or rebound. EXTREMITIES: Normal range of motion, no clubbing or edema. Neurovascularly intact. Left leg below-knee amputation NEUROLOGICAL: Alert and oriented x4. SKIN: Warm, dry, no laceration, no petechiae, no rashes or lesions. <Robbin Evans DO - Last Filed: 08/17/19 23:47> Initial Vital Signs Initial Vital Signs: Vital Signs Temperature 98.6 F 08/17/19 16:39 Pulse Rate 98 H 08/17/19 16:39 Respiratory Rate 27 H 08/17/19 16:39 Blood Pressure 181/99 H 08/17/19 16:39 Pulse Oximetry 96 08/17/19 16:39 Course <Malka Pearce DO - Last Filed: 08/18/19 07:48> Orders Ordered: Discontinued Medications Albuterol (Ventolin Hfa) 2 puff INH NOW ONE Stop: 08/17/19 16:56 Last Admin: 08/17/19 17:10 Dose: 2 puff Documented by: LINETTE Sodium Chloride (Normal Saline 0.9%) 1,000 mls @ 125 mls/hr IV CONT ARIADNA Last Infusion: 08/17/19 20:33 Dose: 0 mls/hr Documented by: Admin: 08/17/19 17:19 Dose: 125 mls/hr Documented by: VICKY Vital Signs Vital signs: Vital Signs - 8 hr 08/17/19 16:39 08/17/19 17:10 08/17/19 18:00 Temperature 98.6 F Pulse Rate 98 H 98 H 103 H Respiratory Rate 27 H 24 24 Blood Pressure 181/99 H Pulse Oximetry 96 94 94 08/17/19 18:30 08/17/19 19:09 08/17/19 19:30 Temperature Pulse Rate 104 H 99 H 98 H Respiratory Rate 23 26 H 29 H Blood Pressure 174/96 H Pulse Oximetry 95 93 94 08/17/19 20:00 Temperature Pulse Rate 97 H Respiratory Rate 22 Blood Pressure Pulse Oximetry 93 <DO Mayra Stewart Last Filed: 08/17/19 23:47> Orders Ordered: Discontinued Medications Albuterol (Ventolin Hfa) 2 puff INH NOW ONE Stop: 08/17/19 16:56 Last Admin: 08/17/19 17:10 Dose: 2 puff Documented by: LINETTE Sodium Chloride (Normal Saline 0.9%) 1,000 mls @ 125 mls/hr IV CONT ARIADNA Last Infusion: 08/17/19 20:33 Dose: 0 mls/hr Documented by: Admin: 08/17/19 17:19 Dose: 125 mls/hr Documented by: VICKY Vital Signs Vital signs: Vital Signs - 8 hr 08/17/19 16:39 08/17/19 17:10 08/17/19 18:00 Temperature 98.6 F Pulse Rate 98 H 98 H 103 H Respiratory Rate 27 H 24 24 Blood Pressure 181/99 H Pulse Oximetry 96 94 94 08/17/19 18:30 08/17/19 19:09 08/17/19 19:30 Temperature Pulse Rate 104 H 99 H 98 H Respiratory Rate 23 26 H 29 H Blood Pressure 174/96 H Pulse Oximetry 95 93 94 08/17/19 20:00 Temperature Pulse Rate 97 H Respiratory Rate 22 Blood Pressure Pulse Oximetry 93 MDM - SOB/Dyspnea <Malka Pearce DO - Last Filed: 08/18/19 07:48> Lab Data Attestation: I reviewed the patient's lab results. Result diagrams: 08/17/19 17:05 08/17/19 17:05 Labs: Lab Results 08/17/19 08/17/19 08/17/19 Range/Units 16:55 17:05 17:05 WBC (4.5-11.0) X10^3/uL RBC (4.0-5.2) X10^6/uL Hgb (12.0-16.0) g/dL Hct (36-46) % MCV (80-100) fL MCH (26-34) PG MCHC (30-36) % RDW (11.6-14.8) % Plt Count (150-400) X10^3/uL Neut % (Auto) (50-75) % Lymph % (Auto) (25-40) % [place] % (Auto) (3-14) % Eos % (Auto) (2-4) % Baso % (Auto) (0-2) % Neut # (Auto) (4143-7088) /uL Lymph # (Auto) (9598-0195) /uL [place] # (Auto) (0-900) /uL Eos # (Auto) (0-450) /uL Baso # (Auto) (0-100) /uL D-Dimer 285 H (<230) ng/mL Sodium (137-145) mmol/L Potassium (3.4-5.1) mmol/L Chloride (98-107) mmol/L Carbon Dioxide (22-32) mmol/L BUN (7-17) mg/dL Creatinine (0.52-1.04) mg/dL Estimated GFR (>60) mL/min BUN/Creatinine Ratio (6-22) Glucose (70-100) mg/dL Lactate (0.7-2.1) mmol/L Calcium (8.4-10.2) mg/dL Ferritin (6-137) ng/mL Total Bilirubin (0.2-1.3) mg/dL AST (14-36) IU/L ALT (<35) IU/L Alkaline Phosphatase (38-126) U/L Total Creatine Kinase (30-135) U/L CK-MB (CK-2) CK-MB (CK-2) Rel Index Troponin I (0.01-0.034) ng/mL C-Reactive Protein (<1.0) mg/dL NT-Pro-B Natriuret Pep (<125) pg/mL Total Protein (6.3-8.2) g/dL Albumin (3.5-5.0) g/dL Globulin (1.7-4.1) g/dL Albumin/Globulin Ratio (1.0-2.8) Procalcitonin < 0.05 (<0.5) ng/mL COVID-19 PCR Positive H (Negative) 08/17/19 08/17/19 08/17/19 Range/Units 17:05 17:05 17:05 WBC 6.8 (4.5-11.0) X10^3/uL RBC 4.88 (4.0-5.2) X10^6/uL Hgb 10.9 L (12.0-16.0) g/dL Hct 35.0 L (36-46) % MCV 71.8 L (80-100) fL MCH 22.4 L (26-34) PG MCHC 31.2 (30-36) % RDW 17.7 H (11.6-14.8) % Plt Count 431 H (150-400) X10^3/uL Neut % (Auto) 63.3 (50-75) % Lymph % (Auto) 20.0 L (25-40) % [place] % (Auto) 14.2 H (3-14) % Eos % (Auto) 1.5 L (2-4) % Baso % (Auto) 1.0 (0-2) % Neut # (Auto) 4300 (2001-2206) /uL Lymph # (Auto) 1400 (7199-8249) /uL [place] # (Auto) 1000 H (0-900) /uL Eos # (Auto) 100 (0-450) /uL Baso # (Auto) 100 (0-100) /uL D-Dimer (<230) ng/mL Sodium 139 (137-145) mmol/L Potassium 3.6 (3.4-5.1) mmol/L Chloride 104 (98-107) mmol/L Carbon Dioxide 25 (22-32) mmol/L BUN 6 L (7-17) mg/dL Creatinine 0.39 L (0.52-1.04) mg/dL Estimated GFR > 60.0 (>60) mL/min BUN/Creatinine Ratio 15.4 (6-22) Glucose 229 H (70-100) mg/dL Lactate 2.8 H (0.7-2.1) mmol/L Calcium 9.1 (8.4-10.2) mg/dL Ferritin 10 (6-137) ng/mL Total Bilirubin 0.2 (0.2-1.3) mg/dL AST 33 (14-36) IU/L ALT 28 (<35) IU/L Alkaline Phosphatase 149 H (38-126) U/L Total Creatine Kinase 52 (30-135) U/L CK-MB (CK-2) TNP CK-MB (CK-2) Rel Index TNP Troponin I < 0.012 (0.01-0.034) ng/mL C-Reactive Protein 1.6 H (<1.0) mg/dL NT-Pro-B Natriuret Pep 25 (<125) pg/mL Total Protein 7.1 (6.3-8.2) g/dL Albumin 3.9 (3.5-5.0) g/dL Globulin 3.2 (1.7-4.1) g/dL Albumin/Globulin Ratio 1.2 (1.0-2.8) Procalcitonin (<0.5) ng/mL COVID-19 PCR (Negative) 08/17/19 08/17/19 Range/Units 17:05 19:25 WBC (4.5-11.0) X10^3/uL RBC (4.0-5.2) X10^6/uL Hgb (12.0-16.0) g/dL Hct (36-46) % MCV (80-100) fL MCH (26-34) PG MCHC (30-36) % RDW (11.6-14.8) % Plt Count (150-400) X10^3/uL Neut % (Auto) (50-75) % Lymph % (Auto) (25-40) % [place] % (Auto) (3-14) % Eos % (Auto) (2-4) % Baso % (Auto) (0-2) % Neut # (Auto) (4751-4831) /uL Lymph # (Auto) (6835-4995) /uL [place] # (Auto) (0-900) /uL Eos # (Auto) (0-450) /uL Baso # (Auto) (0-100) /uL D-Dimer (<230) ng/mL Sodium (137-145) mmol/L Potassium (3.4-5.1) mmol/L Chloride (98-107) mmol/L Carbon Dioxide (22-32) mmol/L BUN (7-17) mg/dL Creatinine (0.52-1.04) mg/dL Estimated GFR (>60) mL/min BUN/Creatinine Ratio (6-22) Glucose (70-100) mg/dL Lactate 1.9 (0.7-2.1) mmol/L Calcium (8.4-10.2) mg/dL Ferritin (6-137) ng/mL Total Bilirubin (0.2-1.3) mg/dL AST (14-36) IU/L ALT (<35) IU/L Alkaline Phosphatase (38-126) U/L Total Creatine Kinase (30-135) U/L CK-MB (CK-2) CK-MB (CK-2) Rel Index Troponin I (0.01-0.034) ng/mL C-Reactive Protein (<1.0) mg/dL NT-Pro-B Natriuret Pep (<125) pg/mL Total Protein (6.3-8.2) g/dL Albumin (3.5-5.0) g/dL Globulin (1.7-4.1) g/dL Albumin/Globulin Ratio (1.0-2.8) Procalcitonin (<0.5) ng/mL COVID-19 PCR Cancelled (Negative) ECG Data Attestation: I personally reviewed and interpreted this ECG as follows: Prior ECG tracings: available for review Interpretation: Normal sinus rhythm rate 101 p.r. interval 143 QRS [address] elevation depression no T-wave inversion no Q-waves MDM Narrative Medical decision making narrative: Patient's D-dimer is relatively unchanged, and what minimal elevation there is is likely due to the COVID-19 infection. At this time her symptoms are consistent with COVID-19 and she had recent exposure. She is positive for COVID-19. She is not hypoxic she is able to eat and drink. At this time no admission criteria is met. Lactic acid is slightly elevated at 2.8, awaiting repeat Patient is signed out to Dr. Evans, with impending discharge <Robbin Evans, DO - Last Filed: 08/17/19 23:47> Lab Data Labs: Lab Results 08/17/19 08/17/19 08/17/19 Range/Units 16:55 17:05 17:05 WBC (4.5-11.0) X10^3/uL RBC (4.0-5.2) X10^6/uL Hgb (12.0-16.0) g/dL Hct (36-46) % MCV (80-100) fL MCH (26-34) PG MCHC (30-36) % RDW (11.6-14.8) % Plt Count (150-400) X10^3/uL Neut % (Auto) (50-75) % Lymph % (Auto) (25-40) % [place] % (Auto) (3-14) % Eos % (Auto) (2-4) % Baso % (Auto) (0-2) % Neut # (Auto) (2139-5222) /uL Lymph # (Auto) (2061-0188) /uL [place] # (Auto) (0-900) /uL Eos # (Auto) (0-450) /uL Baso # (Auto) (0-100) /uL D-Dimer 285 H (<230) ng/mL Sodium (137-145) mmol/L Potassium (3.4-5.1) mmol/L Chloride (98-107) mmol/L Carbon Dioxide (22-32) mmol/L BUN (7-17) mg/dL Creatinine (0.52-1.04) mg/dL Estimated GFR (>60) mL/min BUN/Creatinine Ratio (6-22) Glucose (70-100) mg/dL Lactate (0.7-2.1) mmol/L Calcium (8.4-10.2) mg/dL Ferritin (6-137) ng/mL Total Bilirubin (0.2-1.3) mg/dL AST (14-36) IU/L ALT (<35) IU/L Alkaline Phosphatase (38-126) U/L Total Creatine Kinase (30-135) U/L CK-MB (CK-2) CK-MB (CK-2) Rel Index Troponin I (0.01-0.034) ng/mL C-Reactive Protein (<1.0) mg/dL NT-Pro-B Natriuret Pep (<125) pg/mL Total Protein (6.3-8.2) g/dL Albumin (3.5-5.0) g/dL Globulin (1.7-4.1) g/dL Albumin/Globulin Ratio (1.0-2.8) Procalcitonin < 0.05 (<0.5) ng/mL COVID-19 PCR Positive H (Negative) 08/17/19 08/17/19 08/17/19 Range/Units 17:05 17:05 17:05 WBC 6.8 (4.5-11.0) X10^3/uL RBC 4.88 (4.0-5.2) X10^6/uL Hgb 10.9 L (12.0-16.0) g/dL Hct 35.0 L (36-46) % MCV 71.8 L (80-100) fL MCH 22.4 L (26-34) PG MCHC 31.2 (30-36) % RDW 17.7 H (11.6-14.8) % Plt Count 431 H (150-400) X10^3/uL Neut % (Auto) 63.3 (50-75) % Lymph % (Auto) 20.0 L (25-40) % [place] % (Auto) 14.2 H (3-14) % Eos % (Auto) 1.5 L (2-4) % Baso % (Auto) 1.0 (0-2) % Neut # (Auto) 4300 (5532-2974) /uL Lymph # (Auto) 1400 (6560-2619) /uL [place] # (Auto) 1000 H (0-900) /uL Eos # (Auto) 100 (0-450) /uL Baso # (Auto) 100 (0-100) /uL D-Dimer (<230) ng/mL Sodium 139 (137-145) mmol/L Potassium 3.6 (3.4-5.1) mmol/L Chloride 104 (98-107) mmol/L Carbon Dioxide 25 (22-32) mmol/L BUN 6 L (7-17) mg/dL Creatinine 0.39 L (0.52-1.04) mg/dL Estimated GFR > 60.0 (>60) mL/min BUN/Creatinine Ratio 15.4 (6-22) Glucose 229 H (70-100) mg/dL Lactate 2.8 H (0.7-2.1) mmol/L Calcium 9.1 (8.4-10.2) mg/dL Ferritin 10 (6-137) ng/mL Total Bilirubin 0.2 (0.2-1.3) mg/dL AST 33 (14-36) IU/L ALT 28 (<35) IU/L Alkaline Phosphatase 149 H (38-126) U/L Total Creatine Kinase 52 (30-135) U/L CK-MB (CK-2) TNP CK-MB (CK-2) Rel Index TNP Troponin I < 0.012 (0.01-0.034) ng/mL C-Reactive Protein 1.6 H (<1.0) mg/dL NT-Pro-B Natriuret Pep 25 (<125) pg/mL Total Protein 7.1 (6.3-8.2) g/dL Albumin 3.9 (3.5-5.0) g/dL Globulin 3.2 (1.7-4.1) g/dL Albumin/Globulin Ratio 1.2 (1.0-2.8) Procalcitonin (<0.5) ng/mL COVID-19 PCR (Negative) 08/17/19 08/17/19 Range/Units 17:05 19:25 WBC (4.5-11.0) X10^3/uL RBC (4.0-5.2) X10^6/uL Hgb (12.0-16.0) g/dL Hct (36-46) % MCV (80-100) fL MCH (26-34) PG MCHC (30-36) % RDW (11.6-14.8) % Plt Count (150-400) X10^3/uL Neut % (Auto) (50-75) % Lymph % (Auto) (25-40) % [place] % (Auto) (3-14) % Eos % (Auto) (2-4) % Baso % (Auto) (0-2) % Neut # (Auto) (7901-1955) /uL Lymph # (Auto) (8106-7532) /uL [place] # (Auto) (0-900) /uL Eos # (Auto) (0-450) /uL Baso # (Auto) (0-100) /uL D-Dimer (<230) ng/mL Sodium (137-145) mmol/L Potassium (3.4-5.1) mmol/L Chloride (98-107) mmol/L Carbon Dioxide (22-32) mmol/L BUN (7-17) mg/dL Creatinine (0.52-1.04) mg/dL Estimated GFR (>60) mL/min BUN/Creatinine Ratio (6-22) Glucose (70-100) mg/dL Lactate 1.9 (0.7-2.1) mmol/L Calcium (8.4-10.2) mg/dL Ferritin (6-137) ng/mL Total Bilirubin (0.2-1.3) mg/dL AST (14-36) IU/L ALT (<35) IU/L Alkaline Phosphatase (38-126) U/L Total Creatine Kinase (30-135) U/L CK-MB (CK-2) CK-MB (CK-2) Rel Index Troponin I (0.01-0.034) ng/mL C-Reactive Protein (<1.0) mg/dL NT-Pro-B Natriuret Pep (<125) pg/mL Total Protein (6.3-8.2) g/dL Albumin (3.5-5.0) g/dL Globulin (1.7-4.1) g/dL Albumin/Globulin Ratio (1.0-2.8) Procalcitonin (<0.5) ng/mL COVID-19 PCR Cancelled (Negative) MDM Narrative Medical decision making narrative: Dr evans: Received turned over. Reviewed patient's history and physical and labs and radiologic studies. Patient is COVID-19 positive. She was informed of this result. She was given instructions with regard to this. Patient's repeat lactate improved. Not hypoxic. Feel patient can be safely discharged home without further workup. I did discuss with her return precautions. She expressed understanding and agreement. Discharge Plan Departure Patient Disposition: Home Clinical Impression: COVID-19 Discharge Date/Time: 08/17/19 20:32 Instructions: DI for COVID-19 (Suspected or Confirmed ) Activity Restrictions/Additional Instructions: *Health department recommends that you isolate for a full 10 days after symptoms *It is imperative that you contact every 1 you came in contact with 2 days prior to symptoms * lying on her stomach can help improve your breathing, if you are able to do so CDC Guidelines for home isolation: - Stay away from others - Limit contact with pets and animals: If you must care for a pet, wash your hands before and after interacting with them - Wear a mask if you are sick - Cover your mouth and nose with a tissue when you cough or sneeze. Dispose of tissues in a lined trash can and wash your hands immediately with soap and water for at least 20 seconds. If soap and water are not available, clean hands with alcohol-based hand oiling machine operator that contains at least 60% alcohol. - Clean your hands often with soap and water for at least 20 seconds - Avoid touching your eyes, nose and mouth with unwashed hands - Do not share dishes, drinking glasses, cups, eating utensils, towels, or bedding with other people in your home. After using these items, wash them thoroughly with soap and water or put in the distribution superintendent. - Clean high-touch surfaces in your isolation area (?sick room? and bathroom) every day; let a caregiver clean and disinfect high-touch surfaces in other areas of the home. Clean the area or item with soap and water or another detergent if it is dirty. Then, use a household disinfectant. Seek medical attention, but call first: - Seek medical care right away if your illness is worsening (for example, if you have difficulty breathing). - Call your doctor before going in: Before going to the doctor?s office or emergency room, call ahead and tell them your symptoms. They will tell you what to do. - If possible, put on a facemask before you enter the building. If you can?t put on a facemask, try to keep a safe distance from other people (at least 6 feet away). This will help protect the people in the office or waiting room. - Follow care instructions from your healthcare provider and local health d epartment: Your local health authorities will give instructions on checking your symptoms and reporting information. Emergency warning signs for COVID-19: - Difficulty breathing or shortness of breath - Persistent pain or pressure in the chest - New confusion or inability to arouse - Bluish lips or face Prescriptions: No Action varenicline 1 mg tablet 1 mg PO BID RF: 0 buspirone 10 mg tablet 10 mg PO BID Qty: 180 RF: 1 omeprazole 20 mg capsule,delayed release(DR/EC) 20 mg PO DAILY Qty: 90 RF: 1 venlafaxine 150 mg capsule,extended release 24hr 150 mg PO BID Qty: 180 RF: 1 Chantix Starting Month Box 0.5 mg (11)- 1 mg (42) tablets,dose pack See Rx Instructions PO PER PKG DIR Qty: 53 RF: 0 Chantix Continuing Month Box 1 mg tablet 1 mg PO BID Qty: 56 RF: 1 lisinopril 20 mg tablet 20 mg PO BID Qty: 180 RF: 3 (DME) crutches Qty: 1 RF: 0 metoprolol tartrate 25 mg tablet 25 mg PO BEDTIME Qty: 30 RF: 1 Referrals: Raffaele Diallo, [Primary Care Provider] -
[2019-08-17 17:32] LABS: D Dimer 285 ng/mL (<230)
[2019-08-17 17:33] LABS: Lactate (Lactic Acid) 2.8 mmol/L (0.7-2.1)
[2019-08-17 17:35] LABS: Alanine Aminotransferase 28 IU/L (<35); Albumin 3.9 g/dL (3.5-5.0); Albumin Globulin Ratio 1.2 (1.0-2.8); Alkaline Phosphatase 149 U/L (38-126); Aspartate Aminotransferase 33 IU/L (14-36); BUN Creatinine Ratio 15.4 (6-22); Bilirubin Total 0.2 mg/dL (0.2-1.3); Blood Urea Nitrogen 6 mg/dL (7-17); C-Reactive Protein Quant 1.6 mg/dL (<1.0); Calcium 9.1 mg/dL (8.4-10.2); Carbon Dioxide 25 mmol/L (22-32); Chloride 104 mmol/L (98-107); Creatine Kinase 52 U/L (30-135); Estimated Glomerular Filt Rate > 60.0 mL/min (>60); Globulin 3.2 g/dL (1.7-4.1); Glucose 229 mg/dL (70-100); HEMOLYSIS < 15 (0-50); Potassium 3.6 mmol/L (3.4-5.1); Sodium 139 mmol/L (137-145); Total Protein 7.1 g/dL (6.3-8.2)
[2019-08-17 17:45] LABS: NT-proBNP (BNP-Adult 18+) 25 pg/mL (<125); Troponin I < 0.012 ng/mL (0.01-0.034)
[2019-08-17 18:08] LABS: Ferritin 10 ng/mL (6-137)
[2019-08-17 18:14] LABS: COVID19 -Nasal RAPID POSITIVE (Negative)
[2019-08-17 18:42] LABS: Procalcitonin < 0.05 ng/mL (<0.5)
[2019-08-17 19:11] LABS: Reflexed Lactate in 2 Hours Y
[2019-08-17 19:44] LABS: Lactate 2HR (Lactic Acid Rflx) 1.9 mmol/L (0.7-2.1)
== END 2019-08-17 20:32 | disposition home or self-care (01) ==
PROVIDERS: Emergency Medicine; Emergency Provider Emergency Medicine; PCP Family Medicine
DX: U07.1 COVID-19 (principal)
CPT/HCPCS: 36415; 71045; 80053; 82550; 82728; 83605; 83880; 84145; 84484; 85025; 85379; 86140; 87040; 87635; 93005; 93010; 94640; 96360; 96361; 99284

== ENCOUNTER 2019-08-22 10:35 | Emergency (ER) | payer OTHER, MEDICAID, SELFPAY ==
[2019-08-22] VITALS (10 sets, daily range): BP systolic 152–189; BP diastolic 91–112; PULSE 93–102; RESP 17; TEMP 36.7; O2SAT 95–98
--- NOTE | 2019-08-22 11:34 | DI.RAD.S_ITS ---
PROCEDURE: XR CHEST 2V INDICATIONS: INCREASING SHORTNESS OF BREATH,Covid positive TECHNIQUE: 2 views of the chest were acquired. COMPARISON: [facility], CR, XR CHEST 1V, 08/17/2019, 17:39. FINDINGS: Surgical changes and devices: None. Lungs and pleura: Mildly increased bronchovascular markings in bilateral hilar region are seen with mild bronchial wall thickening. No focal infiltrate.. No pleural effusions or pneumothorax. Mediastinum: Mediastinal contours are normal. Heart size is normal. Bones and chest wall: No suspicious bony abnormalities. Soft tissues appear unremarkable. IMPRESSION: Suggestion of mild reactive airway disease. No focal infiltrate, pleural effusion or pneumothorax. Dictated by: Hesham Lewis M.D. on 08/22/2019 at 12:34 Approved by: Hesham Lewis M.D. on 08/22/2019 at 12:35
--- NOTE | 2019-08-22 11:42 | ED.SOB ---
HPI - SOB/Dyspnea <CIARA Flannery - Last Filed: 08/22/19 14:28> General Chief Complaint: Shortness of Breath/Dyspnea Stated Complaint: covid positive,oxygen low last night Time Seen by Provider: 08/22/19 11:06 Source: patient Mode of arrival: Family Vehicle Limitations: no limitations History of Present Illness HPI Narrative: This is a 39 year female, former smoker (smoked for 2 years, quit about 2-3 months ago) with past medical history including GERD, hypertension, leukocytosis, abnormal urine bleeding, and recent Positive Covid 19 on 08/17/19 presents to ED with chief complain of short of breath. Patient had initial cope with symptoms on 08/13/19 after she had contact with a frined who had Covid positive. Patient states she woke up during sleep with suffocating sensation and when she checked O2 said at home id read between 83-87%. She called [facility] this morning and she was advised to going to ED for an evaluation. When the medics evaluated her at home, her O2 sat was within normal limits. Patient reports she has history of claustrophobic and is not sure if she is overly nervous. Patient reports her usual GERD symptoms are heartburn sensation and has not been getting up in the middle of the night with choking sensation and has been managed well with daily omeprazole intake. Patient states she was actually started to feel improved in her condition 2 days ago. Patient reports temperature has been running around 100 F and she has been taking Tylenol for this. Patient requesting anxiolytic medication to calm herself. Patient reports she has been tolerating fluids and solid without difficulty. She had not used albuterol for 24 hours since she feels jittery after the use. Patient denies diarrhea, chest pain, or worsening fatigue. 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 Related Data Home Medications Medication Instructions Recorded Confirmed varenicline 1 mg tablet 1 mg PO BID 05/09/19 08/04/19 Previous Rx's Medication Instructions Recorded buspirone 10 mg tablet 10 mg PO BID #180 tab 05/09/19 lisinopril 20 mg tablet 20 mg PO BID #180 tab 05/09/19 omeprazole 20 mg capsule,delayed 20 mg PO DAILY #90 cap 05/09/19 release varenicline 0.5 mg (11)-1 mg (42) See Rx Instructions PO PER PKG DIR 05/09/19 tablets in a dose pack #53 each varenicline 1 mg tablet 1 mg PO BID #56 tab 05/09/19 venlafaxine 150 mg 150 mg PO BID #180 cap 05/09/19 capsule,extended release 24 hr crutches #1 ea 07/22/19 metoprolol tartrate 25 mg tablet 25 mg PO BEDTIME #30 tab 08/04/19 Allergies Allergy/AdvReac Type Severity Reaction Status Date / Time No Known Drug Allergies Allergy Verified 08/07/19 17:23 Review of Systems <CIARA Flannery - Last Filed: 08/22/19 14:28> Review of Systems Narrative: General: See HPI HEENT: Denies sinus pain, ear pain, sore throat, difficulty swallowing, dizziness. Respiratory: See HPI Cardiovascular: Denies chest pain, palpitations, orthopnea, edema. Gastrointestinal: Denies nausea, vomiting, abdominal pain, diarrhea, constipation, melena. : Denies dysuria, frequency, incontinence, hematuria, urinary retention. Musculoskeletal: Denies weakness, joint pain or bony pain. Skin: Denies rash, skin lesions, or other. Neurologic: Denies weakness, headache, numbness, change in speech, confusion, seizures, incoordination. Psychiatric: No concerning psychosocial issues. 12-point review of systems is negative except for those stated above. Patient History <CIARA Flannery - Last Filed: 08/22/19 14:28> Medical History (Updated 08/22/19 @ 13:40 by CIARA Flannery) Above knee amputation of left lower extremity (Acute) Below knee amputation (Acute) Chronic low back pain (Acute) Generalized anxiety disorder (Acute) GERD (gastroesophageal reflux disease) (Chronic) Leukocytosis (Acute) Loose left total knee arthroplasty (Acute) Sleep apnea (Acute) Thrombocytosis (Acute) Tobacco abuse disorder (Acute) Social History (Updated 08/22/19 @ 12:51 by CIARA Flannery) Smoking Status: Former smoker Tobacco: How many years used: 2 alcohol intake frequency: 0-2 drinks per day Substance Use Type: does not use Exam <CIARA Flannery - Last Filed: 08/22/19 14:28> Narrative Exam Narrative: GEN: Alert, oriented x 3, well appearing and nourished, and in no acute distress. Head: Normal cephalic, atraumatic. No scalp or temporal tenderness, palpable mass or rash. EYES: Pupils are equal, round, and reactive to light and accommodation. Extraocular muscles are intact bilaterally. There is no subconjunctival hemorrhage, exudate and sclera non-icteric. ENT: Hearing grossly intact. Nose without bleeding, purulent discharge or deviation. Mucous membrane dry, no mucosal lesion. Throat without erythema, tonsillar hypertrophy or exudate. Uvula in midline, airway patent. Neck: Trachea in midline. No JVD, non-tender without lymphadenopathy. No masses or thyroid megaly. Supple, non-tender and no meningeal signs. CARDIAC: Normal regular rate and rhythm without murmurs, gallops, or rubs. No chest wall tenderness. No peripheral edema, cyanosis or pallor. Capillary refill is less than 2 seconds. RESPIRATORY: Lungs are clear to auscultate bilaterally. No cough, wheezes, rales, or rhonchi. No stridor, respiratory distress, increase work of breathing, or accessary muscle used. ABD: Abdomen soft, nontender and non-distended. No guarding or rebound tenderness to palpate. Bowel sounds are normal in all 4 quadrants. There is no palpable masses or organomegaly. EXT: Full painless ROM of all extremities with no loss of sensation, strength, effusion or edema. s/p left lower extremity AKA. SKIN: Warm, dry, normal color for patient. No erythema, lesions or rash over visible areas. BACK: Nontender without deformity or crepitance. No flank tenderness. NEUROLOGICAL: Alert and oriented to place, time and person. Sensation and motor function intact bilaterally. No facial droops, dysphasia. PSYCHIATRIC: Good judgement and reason, without hallucinations, abnormal affect or abnormal behaviors during the examination. Patient is not suicidal. Initial Vital Signs Initial Vital Signs: Vital Signs Temperature 98.1 F 08/22/19 10:40 Pulse Rate 98 H 08/22/19 10:40 Respiratory Rate 17 08/22/19 10:40 Blood Pressure 152/100 H 08/22/19 10:40 Pulse Oximetry 96 08/22/19 10:40 <Malka Pearce DO - Last Filed: 08/23/19 07:30> Initial Vital Signs Initial Vital Signs: Vital Signs Temperature 98.1 F 08/22/19 10:40 Pulse Rate 98 H 08/22/19 10:40 Respiratory Rate 17 08/22/19 10:40 Blood Pressure 152/100 H 08/22/19 10:40 Pulse Oximetry 96 08/22/19 10:40 Scores <CIARA Flannery - Last Filed: 08/22/19 14:28> PERC Score Age greater than or equal to 50 years: No Heart rate greater than or equal to 100 bpm: No Room Air O2 Sat less than 95%: No Unilateral leg swelling: No Recent trauma or surgery: No Hemoptysis: No Prior PE or DVT: No Hormone Use: No Total PERC Score: 0 qSOFA Altered Mental Status (GCS <15): No Respiratory rate greater than/equal to 22: Yes Systolic blood pressure less than or equal to 100: No qSOFA Total: 1 0-1 Not High Risk 1-3 High risk Course <CIARA Flannery - Last Filed: 08/22/19 14:28> Orders Ordered: Discontinued Medications Albuterol (Ventolin Hfa) 2 puff INH NOW ONE Stop: 08/22/19 11:39 Last Admin: 08/22/19 13:23 Dose: Not Given Documented by: EMELINA Sodium Chloride (Normal Saline 0.9%) 500 mls @ 1,000 mls/hr IV BOLUS ONE Stop: 08/22/19 12:34 Last Infusion: 08/22/19 13:53 Dose: 0 mls/hr Documented by: Admin: 08/22/19 12:15 Dose: 1,000 mls/hr Documented by: PATRICIA Ketorolac Tromethamine (Toradol) 15 mg IV NOW ONE Stop: 08/22/19 12:06 Last Admin: 08/22/19 12:18 Dose: 15 mg Documented by: PATRICIA Lorazepam (Ativan) 0.5 mg IV NOW ONE Stop: 08/22/19 11:35 Last Admin: 08/22/19 12:14 Dose: 0.5 mg Documented by: PATRICIA Vital Signs Vital signs: Vital Signs - 8 hr 08/22/19 10:40 08/22/19 11:22 08/22/19 11:30 Temperature 98.1 F Pulse Rate 98 H 94 H 93 H Respiratory Rate 17 Blood Pressure 152/100 H 158/91 H Pulse Oximetry 96 96 95 08/22/19 12:00 08/22/19 12:02 08/22/19 12:30 Temperature Pulse Rate 98 H 95 H 98 H Respiratory Rate Blood Pressure 179/107 H 160/106 H Pulse Oximetry 98 97 97 08/22/19 13:00 08/22/19 13:01 08/22/19 13:30 Temperature Pulse Rate 100 H 95 H 102 H Respiratory Rate Blood Pressure 176/103 H Pulse Oximetry 96 96 97 08/22/19 13:31 Temperature Pulse Rate 98 H Respiratory Rate Blood Pressure 189/112 H Pulse Oximetry 97 <Malka Pearce, - Last Filed: 08/23/19 07:30> Orders Ordered: Discontinued Medications Albuterol (Ventolin Hfa) 2 puff INH NOW ONE Stop: 08/22/19 11:39 Last Admin: 08/22/19 13:23 Dose: Not Given Documented by: EMELINA Sodium Chloride (Normal Saline 0.9%) 500 mls @ 1,000 mls/hr IV BOLUS ONE Stop: 08/22/19 12:34 Last Infusion: 08/22/19 13:53 Dose: 0 mls/hr Documented by: Admin: 08/22/19 12:15 Dose: 1,000 mls/hr Documented by: PATRICIA Ketorolac Tromethamine (Toradol) 15 mg IV NOW ONE Stop: 08/22/19 12:06 Last Admin: 08/22/19 12:18 Dose: 15 mg Documented by: PATRICIA Lorazepam (Ativan) 0.5 mg IV NOW ONE Stop: 08/22/19 11:35 Last Admin: 08/22/19 12:14 Dose: 0.5 mg Documented by: PATRICIA Vital Signs Vital signs: Vital Signs - 8 hr 08/22/19 10:40 08/22/19 11:22 08/22/19 11:30 Temperature 98.1 F Pulse Rate 98 H 94 H 93 H Respiratory Rate 17 Blood Pressure 152/100 H 158/91 H Pulse Oximetry 96 96 95 08/22/19 12:00 08/22/19 12:02 08/22/19 12:30 Temperature Pulse Rate 98 H 95 H 98 H Respiratory Rate Blood Pressure 179/107 H 160/106 H Pulse Oximetry 98 97 97 08/22/19 13:00 08/22/19 13:01 08/22/19 13:30 Temperature Pulse Rate 100 H 95 H 102 H Respiratory Rate Blood Pressure 176/103 H Pulse Oximetry 96 96 97 08/22/19 13:31 Temperature Pulse Rate 98 H Respiratory Rate Blood Pressure 189/112 H Pulse Oximetry 97 MDM - SOB/Dyspnea <Han Marquez-CIARA Winkler - Last Filed: 08/22/19 14:28> Differential Diagnosis Differential diagnosis: Likely congestive heart failure, pulmonary embolism and other (pneumonia, Covid 19, ARDS, STEMI, heart failure) Medical Records Attestation: I reviewed the patient's medical records. Lab Data Attestation: I reviewed the patient's lab results. Result diagrams: 08/22/19 12:00 08/22/19 12:00 Labs: Lab Results 08/22/19 08/22/19 08/22/19 Range/Units 12:00 12:00 12:00 WBC 8.3 (4.5-11.0) X10^3/uL RBC 5.09 (4.0-5.2) X10^6/uL Hgb 11.3 L (12.0-16.0) g/dL Hct 35.7 L (36-46) % MCV 70.2 L (80-100) fL MCH 22.2 L (26-34) PG MCHC 31.6 (30-36) % RDW 17.1 H (11.6-14.8) % Plt Count 501 H (150-400) X10^3/uL Neut % (Auto) 56.5 (50-75) % Lymph % (Auto) 33.8 (25-40) % Grainger % (Auto) 8.5 (3-14) % Eos % (Auto) 0.7 L (2-4) % Baso % (Auto) 0.5 (0-2) % Neut # (Auto) 4700 (7142-1712) /uL Lymph # (Auto) 2800 (5396-6742) /uL Grainger # (Auto) 700 (0-900) /uL Eos # (Auto) 100 (0-450) /uL Baso # (Auto) 0 (0-100) /uL PT 10.6 (10.1-12.7) SECONDS INR 0.9 (0.9-1.3) APTT 22 L D (26.4-36.2) SECONDS D-Dimer 237 H (<230) ng/mL Sodium 137 (137-145) mmol/L Potassium 3.9 (3.4-5.1) mmol/L Chloride 101 (98-107) mmol/L Carbon Dioxide 27 (22-32) mmol/L BUN 8 (7-17) mg/dL Creatinine 0.33 L (0.52-1.04) mg/dL Estimated GFR > 60.0 (>60) mL/min BUN/Creatinine Ratio 24.2 H (6-22) Glucose 173 H (70-100) mg/dL Lactate (0.7-2.1) mmol/L Calcium 9.3 (8.4-10.2) mg/dL Total Bilirubin 0.2 (0.2-1.3) mg/dL AST 20 (14-36) IU/L ALT 24 (<35) IU/L Alkaline Phosphatase 138 H (38-126) U/L Total Creatine Kinase 50 (30-135) U/L CK-MB (CK-2) TNP CK-MB (CK-2) Rel Index TNP Troponin I < 0.012 (0.01-0.034) ng/mL NT-Pro-B Natriuret Pep 23 (<125) pg/mL Total Protein 7.4 (6.3-8.2) g/dL Albumin 4.1 (3.5-5.0) g/dL Globulin 3.3 (1.7-4.1) g/dL Albumin/Globulin Ratio 1.2 (1.0-2.8) Procalcitonin (<0.5) ng/mL 08/22/19 08/22/19 Range/Units 12:00 12:00 WBC (4.5-11.0) X10^3/uL RBC (4.0-5.2) X10^6/uL Hgb (12.0-16.0) g/dL Hct (36-46) % MCV (80-100) fL MCH (26-34) PG MCHC (30-36) % RDW (11.6-14.8) % Plt Count (150-400) X10^3/uL Neut % (Auto) (50-75) % Lymph % (Auto) (25-40) % Grainger % (Auto) (3-14) % Eos % (Auto) (2-4) % Baso % (Auto) (0-2) % Neut # (Auto) (7387-4147) /uL Lymph # (Auto) (6141-1311) /uL Grainger # (Auto) (0-900) /uL Eos # (Auto) (0-450) /uL Baso # (Auto) (0-100) /uL PT (10.1-12.7) SECONDS INR (0.9-1.3) APTT (26.4-36.2) SECONDS D-Dimer (<230) ng/mL Sodium (137-145) mmol/L Potassium (3.4-5.1) mmol/L Chloride (98-107) mmol/L Carbon Dioxide (22-32) mmol/L BUN (7-17) mg/dL Creatinine (0.52-1.04) mg/dL Estimated GFR (>60) mL/min BUN/Creatinine Ratio (6-22) Glucose (70-100) mg/dL Lactate 1.7 (0.7-2.1) mmol/L Calcium (8.4-10.2) mg/dL Total Bilirubin (0.2-1.3) mg/dL AST (14-36) IU/L ALT (<35) IU/L Alkaline Phosphatase (38-126) U/L Total Creatine Kinase (30-135) U/L CK-MB (CK-2) CK-MB (CK-2) Rel Index Troponin I (0.01-0.034) ng/mL NT-Pro-B Natriuret Pep (<125) pg/mL Total Protein (6.3-8.2) g/dL Albumin (3.5-5.0) g/dL Globulin (1.7-4.1) g/dL Albumin/Globulin Ratio (1.0-2.8) Procalcitonin < 0.05 (<0.5) ng/mL Imaging Data Chest x-ray: Radiologist's Impression: [address] [address] XRay Report Signed Patient: Zaria Maldonado BMR#: [id number] : 1980Acct:[id number] Age/Sex: 39 / FDate of Service: 08/22/19 Loc: ED Accession Number: [id number] Procedure: XR chest 2V Ordering Provider: Han Harmon PROCEDURE: XR CHEST 2V INDICATIONS: INCREASING SHORTNESS OF BREATH,Covid positive TECHNIQUE: 2 views of the chest were acquired. COMPARISON: [facility], , XR CHEST 1V, 08/17/2019, 17:39. FINDINGS: Surgical changes and devices: None. Lungs and pleura: Mildly increased bronchovascular markings in bilateral hilar region are seen with mild bronchial wall thickening. No focal infiltrate.. No pleural effusions or pneumothorax. Mediastinum: Mediastinal contours are normal. Heart size is normal. Bones and chest wall: No suspicious bony abnormalities. Soft tissues appear unremarkable. IMPRESSION: Suggestion of mild reactive airway disease. No focal infiltrate, pleural effusion or pneumothorax. Dictated by: Hesham Lewis M.D. on 08/22/2019 at 12:34 Approved by: Hesham Lewis M.D. on 08/22/2019 at 12:35 ECG Data Attestation: I personally reviewed and interpreted this ECG as follows: Prior ECG tracings: available for review Interpretation: Sinus rhythm rate at 89. Normal [place] CT interval 148, QRS duration 90, QT/QTC 356/[address] changes MDM Narrative Medical decision making narrative: This is a 39 year female who was diagnosed with COVID-19 5 days ago return to ED with chief complain of short of breath. Patient O2 sat was 95-98% in room air during her stay in ED. lung sounds were clear to auscultate without signs of increased work of breathing or distress. Chest x-ray indicate mild reactive airway disease without focal infiltrate, pleural effusion or pneumothorax. Normal white count. No increased lactate as of 1.7 with normal procalcitonin. Negative cardiac enzymes. No elevation in BNP. Patient was medicated with 500 mL of normal saline due to dried oral mucous, albuterol via spacer for short of breath and Ativan IV. Patient was able to rest comfortably and reports improved symptoms. Findings were discussed with patient and advised to continue to monitor worsening symptoms and self isolation up to 2 weeks after she was diagnosed with cold feet and to use good hand hygiene and social distance. Strict return precautions were discussed with patient and advised to follow up with [employer] that she plan to follow-up in increased platelet counts and informed her previous and today's lab test. Patient is not currently needing admission criteria or oxygen for home use. Patient verbalized understanding and agreement with treatment plan. <Malka Pearce, DO - Last Filed: 08/23/19 07:30> Lab Data Labs: Lab Results 08/22/19 08/22/19 08/22/19 Range/Units 12:00 12:00 12:00 WBC 8.3 (4.5-11.0) X10^3/uL RBC 5.09 (4.0-5.2) X10^6/uL Hgb 11.3 L (12.0-16.0) g/dL Hct 35.7 L (36-46) % MCV 70.2 L (80-100) fL MCH 22.2 L (26-34) PG MCHC 31.6 (30-36) % RDW 17.1 H (11.6-14.8) % Plt Count 501 H (150-400) X10^3/uL Neut % (Auto) 56.5 (50-75) % Lymph % (Auto) 33.8 (25-40) % Grainger % (Auto) 8.5 (3-14) % Eos % (Auto) 0.7 L (2-4) % Baso % (Auto) 0.5 (0-2) % Neut # (Auto) 4700 (6696-9849) /uL Lymph # (Auto) 2800 (1338-7286) /uL Grainger # (Auto) 700 (0-900) /uL Eos # (Auto) 100 (0-450) /uL Baso # (Auto) 0 (0-100) /uL PT 10.6 (10.1-12.7) SECONDS INR 0.9 (0.9-1.3) APTT 22 L D (26.4-36.2) SECONDS D-Dimer 237 H (<230) ng/mL Sodium 137 (137-145) mmol/L Potassium 3.9 (3.4-5.1) mmol/L Chloride 101 (98-107) mmol/L Carbon Dioxide 27 (22-32) mmol/L BUN 8 (7-17) mg/dL Creatinine 0.33 L (0.52-1.04) mg/dL Estimated GFR > 60.0 (>60) mL/min BUN/Creatinine Ratio 24.2 H (6-22) Glucose 173 H (70-100) mg/dL Lactate (0.7-2.1) mmol/L Calcium 9.3 (8.4-10.2) mg/dL Total Bilirubin 0.2 (0.2-1.3) mg/dL AST 20 (14-36) IU/L ALT 24 (<35) IU/L Alkaline Phosphatase 138 H (38-126) U/L Total Creatine Kinase 50 (30-135) U/L CK-MB (CK-2) TNP CK-MB (CK-2) Rel Index TNP Troponin I < 0.012 (0.01-0.034) ng/mL NT-Pro-B Natriuret Pep 23 (<125) pg/mL Total Protein 7.4 (6.3-8.2) g/dL Albumin 4.1 (3.5-5.0) g/dL Globulin 3.3 (1.7-4.1) g/dL Albumin/Globulin Ratio 1.2 (1.0-2.8) Procalcitonin (<0.5) ng/mL 08/22/19 08/22/19 Range/Units 12:00 12:00 WBC (4.5-11.0) X10^3/uL RBC (4.0-5.2) X10^6/uL Hgb (12.0-16.0) g/dL Hct (36-46) % MCV (80-100) fL MCH (26-34) PG MCHC (30-36) % RDW (11.6-14.8) % Plt Count (150-400) X10^3/uL Neut % (Auto) (50-75) % Lymph % (Auto) (25-40) % Grainger % (Auto) (3-14) % Eos % (Auto) (2-4) % Baso % (Auto) (0-2) % Neut # (Auto) (2247-9090) /uL Lymph # (Auto) (1156-0113) /uL Grainger # (Auto) (0-900) /uL Eos # (Auto) (0-450) /uL Baso # (Auto) (0-100) /uL PT (10.1-12.7) SECONDS INR (0.9-1.3) APTT (26.4-36.2) SECONDS D-Dimer (<230) ng/mL Sodium (137-145) mmol/L Potassium (3.4-5.1) mmol/L Chloride (98-107) mmol/L Carbon Dioxide (22-32) mmol/L BUN (7-17) mg/dL Creatinine (0.52-1.04) mg/dL Estimated GFR (>60) mL/min BUN/Creatinine Ratio (6-22) Glucose (70-100) mg/dL Lactate 1.7 (0.7-2.1) mmol/L Calcium (8.4-10.2) mg/dL Total Bilirubin (0.2-1.3) mg/dL AST (14-36) IU/L ALT (<35) IU/L Alkaline Phosphatase (38-126) U/L Total Creatine Kinase (30-135) U/L CK-MB (CK-2) CK-MB (CK-2) Rel Index Troponin I (0.01-0.034) ng/mL NT-Pro-B Natriuret Pep (<125) pg/mL Total Protein (6.3-8.2) g/dL Albumin (3.5-5.0) g/dL Globulin (1.7-4.1) g/dL Albumin/Globulin Ratio (1.0-2.8) Procalcitonin < 0.05 (<0.5) ng/mL Discharge Plan Departure Patient Disposition: Home Clinical Impression: COVID-19 Anemia Qualifiers: Anemia type: unspecified type Qualified Code(s): D64.9 - Anemia, unspecified Discharge Date/Time: 08/22/19 14:10 Instructions: Anemia, Coronavirus Disease 2019 Activity Restrictions/Additional Instructions: You have been diagnosed with [COVID-19 and short of breath, and anemia. Your lab test and blood tests were unremarkable today. Your O2 said while in ED even during sleep was greater than 95-96% without tachypnea]. What to do: *Take your medications as directed. You can use albuterol that you have through spacer when you have short of breath 1-2 puffs each time every 4 hours as needed. Please hydrate well and continue to monitor your symptoms with worsening short of breath. Please continue to self isolate up to 2 weeks and your condition has improved. Please continue to use good hand hygiene and social distancing. *Follow up with your primary care provider in 2-3 days, call for an appointment. Let them know you were seen in the ED and that we asked you to be seen in follow up. Please follow-up with [employer] when self isolation is over as planned. *Return to ED if you have any new, worsening, or concerning symptoms, such as [chest pain, breathing difficulty, unable to tolerate fluids, or any acute concerns]. Prescriptions: No Action varenicline 1 mg tablet 1 mg PO BID RF: 0 buspirone 10 mg tablet 10 mg PO BID Qty: 180 RF: 1 omeprazole 20 mg capsule,delayed release(DR/EC) 20 mg PO DAILY Qty: 90 RF: 1 venlafaxine 150 mg capsule,extended release 24hr 150 mg PO BID Qty: 180 RF: 1 Chantix Starting Month Box 0.5 mg (11)- 1 mg (42) tablets,dose pack See Rx Instructions PO PER PKG DIR Qty: 53 RF: 0 Chantix Continuing Month Box 1 mg tablet 1 mg PO BID Qty: 56 RF: 1 lisinopril 20 mg tablet 20 mg PO BID Qty: 180 RF: 3 (DME) crutches Qty: 1 RF: 0 metoprolol tartrate 25 mg tablet 25 mg PO BEDTIME Qty: 30 RF: 1 Referrals: Raffaele Diallo DO [Primary Care Provider] - <Malka Pearce DO - Last Filed: 08/23/19 07:30> [facility] ED Attending Bj Attestation: I was immediately available in the department for consultation. Documentation has been reviewed. I agree with assessment and plan.
[2019-08-22] MEDS: LORazepam 2 MG/ML INJ 0.5 MG IV (12:14)
[2019-08-22] MEDS: SODIUM CHLORIDE 0.9% 500 ML 1000 ML IV (12:15)
[2019-08-22 12:16] LABS: Add Manual Diff / Slide Review NO; Basophils Absolute Auto 0 /uL (0-100); Basophils Percent Auto 0.5 % (0-2); Eosinophils Absolute Auto 100 /uL (0-450); Eosinophils Percent Auto 0.7 % (2-4); Hematocrit 35.7 % (36-46); Hemoglobin 11.3 g/dL (12.0-16.0); Lymphocytes Absolute Auto 2800 /uL (1100-4500); Lymphocytes Percent Auto 33.8 % (25-40); Mean Corpuscular HGB Conc 31.6 % (30-36); Mean Corpuscular Hemoglobin 22.2 PG (26-34); Mean Corpuscular Volume 70.2 fL (80-100); Monocytes Absolute Auto 700 /uL (0-900); Monocytes Percent Auto 8.5 % (3-14); Neutrophils Absolute Auto 4700 /uL (1500-7000); Neutrophils Percent Auto 56.5 % (50-75); Platelet Count 501 X10^3/uL (150-400); Red Blood Cell Count 5.09 X10^6/uL (4.0-5.2); Red Cell Distribution Width 17.1 % (11.6-14.8); White Blood Cell Count 8.3 X10^3/uL (4.5-11.0)
[2019-08-22] MEDS: KETOROLAC 60 MG/2 ML VIAL 15 MG IV (12:18)
[2019-08-22 12:24] LABS: INR 0.9 (0.9-1.3); Prothrombin Time 10.6 SECONDS (10.1-12.7)
[2019-08-22 12:26] LABS: PTT Partial Thromboplastin Tim 22 SECONDS (26.4-36.2)
[2019-08-22 12:30] LABS: Lactate (Lactic Acid) 1.7 mmol/L (0.7-2.1)
[2019-08-22 12:31] LABS: Alanine Aminotransferase 24 IU/L (<35); Albumin 4.1 g/dL (3.5-5.0); Albumin Globulin Ratio 1.2 (1.0-2.8); Alkaline Phosphatase 138 U/L (38-126); Aspartate Aminotransferase 20 IU/L (14-36); BUN Creatinine Ratio 24.2 (6-22); Bilirubin Total 0.2 mg/dL (0.2-1.3); Blood Urea Nitrogen 8 mg/dL (7-17); Calcium 9.3 mg/dL (8.4-10.2); Carbon Dioxide 27 mmol/L (22-32); Chloride 101 mmol/L (98-107); Creatine Kinase 50 U/L (30-135); Estimated Glomerular Filt Rate > 60.0 mL/min (>60); Globulin 3.3 g/dL (1.7-4.1); Glucose 173 mg/dL (70-100); Potassium 3.9 mmol/L (3.4-5.1); Sodium 137 mmol/L (137-145); Total Protein 7.4 g/dL (6.3-8.2)
[2019-08-22 12:36] LABS: D Dimer 237 ng/mL (<230)
[2019-08-22 12:39] LABS: NT-proBNP (BNP-Adult 18+) 23 pg/mL (<125)
[2019-08-22 12:44] LABS: HEMOLYSIS < 15 (0-50); Troponin I < 0.012 ng/mL (0.01-0.034)
[2019-08-22 12:49] LABS: Procalcitonin < 0.05 ng/mL (<0.5)
== END 2019-08-22 14:10 | disposition home or self-care (01) ==
PROVIDERS: Emergency Provider Nurse Practitioner Family; PCP Family Medicine
DX: U07.1 COVID-19 (principal); D64.9 Anemia, unspecified; R06.02 Shortness of breath; I10 Essential (primary) hypertension; K21.9 Gastro-esophageal reflux disease without esophagitis
CPT/HCPCS: 36415; 71046; 80053; 82550; 83605; 83880; 84145; 84484; 85025; 85379; 85610; 85730; 87040; 93005; 93010; 96361; 96374; 96375; 99284; J1885; J2060

== ENCOUNTER → 2019-10-07 14:01 | Oncology outpatient (ONC) | payer OTHER, MEDICAID, SELFPAY ==
--- NOTE | 2019-09-09 11:18 | ONC.SCHED ---
Due to provider being out on 09/30/2019, lvm with patient to change to Dr. Taylor and time changed to 11:20 appointment.
[2019-09-30 12:26] VITALS: BP 162/89; PULSE 113; RESP 20; TEMP 36.8; O2SAT 96
--- NOTE | 2019-09-30 12:30 | ONC.CONS ---
History of Present Illness - Data of Consult Patient: new to practice Consult date: 09/30/19 Requesting Physician: Raffaele Diallo DO Primary Care Provider: Raffaele Diallo DO - Consult Narrative Reason for consult: Anemia and thromcytosis Narrative: Zaria Maldonado is a 39 year old female. She has history of hypertension and left [id number] amputation due to dog bite when she was a child. Lillian alonzo had horrible periods in the past. She underwent IUD placement in Oct 2018, and her periods have been not heavy since. She had had colon issue before and had colonoscopy almost 16 years ago. She was told to have abnormal cell', and recommended annual C-scope and she did not follow out of fear of the prep juice. Clinically, she denies any blodo in the stool or abdominal pain. She was recently evaluated by Dr. Raffaele Diallo on 08/04/2019. She was noted to have thrombocytosis and leukocytosis. Therefore, she was referred to hematology/oncology for further evaluation. Upon review of the medical record in [facility], her platelet has been persistently elevated betwene [id number] since 07/22/2019. Her WBC counts were elevated in July and August of 2001, but then normalized. Most recent was 8.3 on 08/22/2019. However, she has chronic microcytic anemia with MCV between 70-72. She said that in 2019, due to severe anemia, she had had blood transfusion twice in 08/2018 and 10/2018 respectively. She said she has had craving for ice for probably about 5-6 years. She had hard time with iron pills. She developed constipation. CC: Juan Will MD Home Medications and Allergies Home Medications Medication Instructions Recorded Confirmed Type buspirone 10 mg tablet 10 mg PO BID #180 tab 05/09/19 09/30/19 Rx lisinopril 20 mg tablet 20 mg PO BID #180 tab 05/09/19 09/30/19 Rx omeprazole 20 mg capsule,delayed 20 mg PO DAILY #90 cap 05/09/19 09/30/19 Rx release varenicline 1 mg tablet 1 mg PO BID 05/09/19 09/30/19 History venlafaxine 150 mg 150 mg PO BID #180 cap 05/09/19 09/30/19 Rx capsule,extended release 24 hr crutches #1 ea 07/22/19 08/04/19 Rx gabapentin 100 mg capsule 100 mg PO BID #60 cap 08/23/19 09/30/19 Rx varenicline 1 mg tablet 1 mg PO BID #56 tab 09/24/19 09/30/19 Rx Wheelchair #1 ea 09/26/19 Rx Allergies Allergy/AdvReac Type Severity Reaction Status Date / Time No Known Drug Allergies Allergy Verified 08/07/19 17:23 Medical History - Medical, Surgical, Family History Medical History: Medical History (Last Updated 08/22/19 @ 12:51 by CIARA Flannery) Above knee amputation of left lower extremity Chronic low back pain Generalized anxiety disorder GERD (gastroesophageal reflux disease) Leukocytosis Loose left total knee arthroplasty Sleep apnea Thrombocytosis Tobacco abuse disorder Surgical History: Surgical History (Last Updated 09/30/19 @ 12:43 by Sneha Taylor MD) History of Hx of cholecystectomy Family History: Family History (Last Updated 09/30/19 @ 12:45 by Sneha Taylor MD) Grandfather Colon cancer - Social History Smoking Status: Former smoker Substance Use Type: former substance user Alcohol Intake: never Review of Systems - Patient Self-Reported Symptoms SR respiratory issues: Shortness of breath SR Cardiovascular issues: Dizzy/lightheaded SR Neuro issues: Headache, Tremors or shaking SR Endocrine issues: Excessive urination All systems PM: reviewed and no additional remarkable complaints except as stated Exam Vital signs: Last Vital Signs Temp 98.3 F 09/30/19 12:26 Pulse 113 H 09/30/19 12:26 Resp 20 09/30/19 12:26 BP 162/89 H 09/30/19 12:26 Pulse Ox 96 09/30/19 12:26 - Constitutional positive no acute distress, positive morbidly obese, positive cooperative - Routine HEENT Exam Head: Present: normocephalic, atraumatic Eye: Present: EOMI, PERRL, normal accommodation. Absent: conjunctival icterus, scleral injection - Routine Neck Exam Present: supple. Absent: lymphadenopathy, thyromegaly - Routine Chest/Breast/Axilla Exam Axillae: Absent: lymphadenopathy - Routine Respiratory Exam Present: Clear to auscultation bilaterally. Absent: accessory muscle use, respiratory distress, wheezes, crackles - Routine Cardiovascular Exam Present: RRR, S1, S2. Absent: murmur, gallop, rubs - Routine Abdominal Exam Present: soft. Absent: tenderness, organomegaly - Routine Extremities Exam Present: amputation (Left above the knee amputation). Absent: edema - Routine Neurological Exam Present: alert, oriented X3, CN II-XII intact. Absent: sensory deficit, motor deficit - Routine Psychiatric Exam Present: normal affect Results - Labs Pending Assessment and Plan (1) Iron deficiency anemia 39 year old female with chronic microcytic anemia with thrombocytosis. I explained to the patient that anemia with microcytosis is consistent with iron deficiency. The increased platelet counts could be due to iron deficiency. Clinically patient has significant craving for ice that could be due to iron deficiency too (pica). I talked with patient that I will obtain blood samples to evaluate and confirm the existence of iron deficiency. I talked with the patient that the etiologies for iron deficiency most commonly include gastrointestinal blood loss and menstrual periods blood loss. Patient said that since after the IUD placement in October 2018, her periods have almost significantly reduced to nothing. However clinically patient denies any blood in the stool. I explained to the patient that for slow chronic GI bleeding, sometimes we did not see any apparent visible blood. I would recommend a colonoscopy for evaluation. I talked with the patient that I will recommend intravenous iron if it is confirmed. She said she had tried iron before which causes significant constipation. Plan: CBC, CMP, Iron Panel, Ferritin, B12, Folate Surgical referral for colonoscopy RTC in 3-4 weeks, iron infusion?
--- NOTE | 2019-10-02 11:05 | ONC.SCHED ---
Left msg for patient to call regarding scheduling and the referral I am sending to [facility].
[2019-10-07 14:35] LABS: Add Manual Diff / Slide Review NO; Basophils Absolute Auto 100 /uL (0-100); Basophils Percent Auto 0.6 % (0-2); Eosinophils Absolute Auto 200 /uL (0-450); Eosinophils Percent Auto 1.4 % (2-4); Hematocrit 35.7 % (36-46); Lymphocytes Absolute Auto 2900 /uL (1100-4500); Lymphocytes Percent Auto 25.9 % (25-40); Mean Corpuscular HGB Conc 30.8 % (30-36); Mean Corpuscular Hemoglobin 21.5 PG (26-34); Mean Corpuscular Volume 69.8 fL (80-100); Monocytes Absolute Auto 900 /uL (0-900); Monocytes Percent Auto 7.6 % (3-14); Neutrophils Absolute Auto 7300 /uL (1500-7000); Neutrophils Percent Auto 64.5 % (50-75); Platelet Count 536 X10^3/uL (150-400); Red Blood Cell Count 5.12 X10^6/uL (4.0-5.2); Red Cell Distribution Width 17.1 % (11.6-14.8); White Blood Cell Count 11.4 X10^3/uL (4.5-11.0)
[2019-10-07 15:06] LABS: Anisocytosis 1+; Microcytosis 1+
[2019-10-07 15:38] LABS: HEMOLYSIS < 15 (0-50); Iron 31 ug/dL (37-170)
[2019-10-07 15:40] LABS: Alanine Aminotransferase 33 IU/L (<35); Albumin 4.1 g/dL (3.5-5.0); Albumin Globulin Ratio 1.4 (1.0-2.8); Alkaline Phosphatase 121 U/L (38-126); Aspartate Aminotransferase 29 IU/L (14-36); BUN Creatinine Ratio 17.5 (6-22); Bilirubin Total 0.3 mg/dL (0.2-1.3); Blood Urea Nitrogen 7 mg/dL (7-17); Calcium 9.6 mg/dL (8.4-10.2); Carbon Dioxide 29 mmol/L (22-32); Chloride 100 mmol/L (98-107); Estimated Glomerular Filt Rate > 60.0 mL/min (>60); Glucose 125 mg/dL (70-100); HEMOLYSIS < 15 (0-50); Potassium 4.3 mmol/L (3.4-5.1); Sodium 137 mmol/L (137-145); Total Protein 7.1 g/dL (6.3-8.2)
[2019-10-07 15:49] LABS: Percent Iron Saturation 8 % (15-50); Total Iron Binding Capacity 400 ug/dL (265-497); Transferrin 316 mg/dL (206-381)
[2019-10-07 16:17] LABS: Ferritin 9 ng/mL (6-137)
[2019-10-07 16:48] LABS: Folate 7.1 ng/mL (2.76-20.0); Vitamin B12 651 pg/mL (239-931)
--- NOTE | 2019-11-10 13:05 | ONC.SCHED ---
left voice mail for patient to call and reschedule/patient no show
== END ==
PROVIDERS: Internal Medicine Hematology & Oncology; PCP Family Medicine; Referring Provider Family Medicine; Visit Provider Internal Medicine
DX: D50.9 Iron deficiency anemia, unspecified (principal)
CPT/HCPCS: 36415; 80053; 82607; 82728; 82746; 83540; 83550; 85025; 99204; 99213; 99214